=== PATIENT | female | born 1950 | race Caucasian/White ===

== ENCOUNTER → 2016-08-09 | Outpatient (CLI) | payer MEDICARE, OTHER | LOC: RAD 11:12 | PROVIDERS: ATTEND Family Medicine | DX: M54.12 Radiculopathy, cervical region (principal) | CPT/HCPCS: 72141 ==

== ENCOUNTER 2016-11-02 06:25 | Inpatient (IN) | payer MEDICARE, OTHER ==
[2016-11-02] MEDS ORDERED: NALOXONE HCL INJ/PF 0.4 MG/1 ML SDV ONE (08:15)
[2016-11-02] MEDS ORDERED: ONDANSETRON HCL INJ/PF 4 MG/2 ML SDV ONE (08:15)
[2016-11-02] MEDS ORDERED: DIPHENHYDRAMINE HCL 50 MG/ML VIAL ONE (08:15)
[2016-11-02] MEDS ORDERED: FLUMAZENIL INJ 0.5 MG/5 ML VIAL IV ONE (08:16)
[2016-11-02] MEDS ORDERED: EPINEPHRINE INJ 1 MG/10 ML DISP.SYRIN ONE (08:16)
[2016-11-02] MEDS ORDERED: GLUCAGON,HUMAN RECOMB 1 MG INJ ONE (08:17)
[2016-11-02 09:48] LABS: HEMATOCRIT 40.8 % (36.0-47.0); HEMOGLOBIN 14.2 g/dL (12.0-15.5); HGB HCT DIFFERENCE 1.8; MEAN CORPUSCULAR HEMOGLOBIN 34.1 pg (27.0-33.4); MEAN CORPUSCULAR HGB CONC 34.9 g/dL (32.0-36.0); MEAN CORPUSCULAR VOLUME 98 fl (80-97); RED BLOOD COUNT 4.17 10^6/uL (3.72-5.28); RED CELL DISTRIBUTION WIDTH 14.3 % (11.5-14.0); WHITE BLOOD COUNT 7.9 10^3/uL (4.0-10.5)
[2016-11-02] MEDS: MIDAZOLAM 2 MG/2 ML INJ ONE ×2 (09:58→10:02)
[2016-11-02] MEDS: FENTANYL CITRATE INJ/PF 100 MCG/2 ML AMPUL ONE ×2 (10:00→10:04)
--- NOTE | 2016-11-02 10:12 | Operative Report ---
Operative Report DATE OF SURGERY: 11/02/16 Operative Report: The risks benefits and alternatives of the procedure explained to the patient in detail and informed consent is obtained that GIF Olympus video scope was inserted into the patient's mouth and hypopharynx the esophagus is identified intubated and insufflated the scope was then advanced through the esophagus stomach and duodenum retroflexion maneuver is done the esophagus stomach and first and second portions of the duodenum examined PREOPERATIVE DIAGNOSIS: Epigastric pain POSTOPERATIVE DIAGNOSIS: Gastritis, duodenitis OPERATION: EGD with biopsy SURGEON: TETE VILLALPANDO ANESTHESIA: Moderate Sedation - 4 mg of Versed, 75 g of fentanyl. Conscious sedation monitoring time 30 minutes. TISSUE REMOVED OR ALTERED: Gastric specimens obtained rule out Helicobacter pylori COMPLICATIONS: None. ESTIMATED BLOOD LOSS: none. INTRAOPERATIVE FINDINGS: Gastritis, duodenitis. PROCEDURE: Patient tolerated procedure well. No immediate postprocedure complications are noted. Patient had labs drawn including an elevated lipase. We'll offer the patient possible admission if she is willing Otherwise patient is discharged in good condition Discharge date 11/02/2016. Discharge diet clear liquids Discharge activity regular 2-3 week follow-up to discuss findings. She was instructed to call the office or proceed to the emergency room should there be any further problems or questions. We'll await on biopsies.
[2016-11-02 10:53] LABS: ANION GAP 14 (5-19); BLOOD UREA NITROGEN 26 mg/dL (7-20); CALCIUM 10.2 mg/dL (8.4-10.2); CARBON DIOXIDE 21 mmol/L (22-30); CHLORIDE 102 mmol/L (98-107); CREATININE RESULT 0.87 mg/dL (0.52-1.25); GLUCOSE 231 mg/dL (75-110); POTASSIUM 4.8 mmol/L (3.6-5.0); SODIUM 137.4 mmol/L (137-145)
[2016-11-02] MEDS ORDERED: ACETAMINOPHEN 325 MG TABLET PO PRN (12:16)
[2016-11-02] MEDS ORDERED: DEXTROSE 40% GEL 15 GM TUBE PO PRN ×4 (12:16→12:24)
[2016-11-02] MEDS ORDERED: ONDANSETRON HCL INJ/PF 4 MG/2 ML SDV IV PRN (12:16)
[2016-11-02] MEDS ORDERED: DEXTROSE 50%-WATER 25 GM/50 ML DISP.SYRIN IV PRN ×4 (12:16→12:24)
[2016-11-02] MEDS ORDERED: NORMAL SALINE 1000 ML 1,000 ML IV PRN (12:16)
[2016-11-02] MEDS ORDERED: GLUCAGON,HUMAN RECOMB 1 MG INJ SUBCUT PRN (12:16)
[2016-11-02] MEDS ORDERED: HYDROMORPHONE HCL INJ/PF 2 MG/ML AMPULE IV PRN (12:20)
[2016-11-02] MEDS ORDERED: GLUCAGON,HUMAN RECOMB 1 MG INJ IM PRN (12:24)
[2016-11-02] MEDS ORDERED: INSULIN REG, HUMAN 100 UNIT/ML 3 ML VIAL (PYX) SUBCUT PRN (12:24)
--- NOTE | 2016-11-02 13:33 | PDOC H&P ---
History of Present Illness Admission Date/PCP: ARIK SHI MD Patient complains of: Abdominal pain History of Present Illness: BLAKE ADEN is a 66 year old female, history of pancreatitis in the past, hypertriglyceridemia prior gallstones status post cholecystectomy presents to the hospital with abdominal pain for the past 1 week pain is colicky in nature and radiating to the back. There is associated nausea but no vomiting. No dysuria urgency or frequency, no diarrhea or constipation, no vaginal discharge or bleeding. No melena hematochezia or hematemesis. Sometimes symptoms get worse with oral intake. The patient was referred to Dr. Beckford who performed upper endoscopy today. EGD revealed gastritis, but no significant ulcer was noted. Repeat blood tests were performed, showing elevated lipase, that was normal recently prior to endoscopy. The patient was referred to the hospitalist for admission. Patient denies any alcohol abuse at all. Past Medical History Cardiac Medical History: Reports: Congestive Heart Failure, Hyperlipidema, Hypertension Denies: Coronary Artery Disease, Myocardial Infarction Pulmonary Medical History: Reports: Pneumonia Denies: Asthma, Bronchitis, Chronic Obstructive Pulmonary Disease (COPD), Tuberculosis Neurological Medical History: Denies: Seizures Endocrine Medical History: Reports: Diabetes Mellitus Type 2, Other - Pancreatitis Malignancy Medical History: Reports: Breast Cancer GI Medical History: Reports: Diverticulitis - diverticulosis Denies: Hepatitis, Hiatal Hernia Musculoskeltal Medical History: Reports: Arthritis, Gout Skin Medical History: Reports: Other - Lymphedema on the left due to prior mastectomy. Hematology: Denies: Anemia, Sickle Cell Disease Past Surgical History Past Surgical History: Reports: Mastectomy - LEFT, 13 nodes removed Denies: Amputation, Hysterectomy, Pacemaker Social History Information Source: Patient Smoking Status: Never Smoker Frequency of Alcohol Use: None Hx Recreational Drug Use: No Drugs: None Hx Prescription Drug Abuse: No Family History Family History: Arthritis, CAD, CVA, DM, Hyperlipidemia, Hypertension, Malignancy, Other Parental Family History Reviewed: Yes Children Family History Reviewed: Yes Sibling(s) Family History Reviewed.: Yes Medication/Allergy Home Medications: Allopurinol [Zyloprim 300 mg Tablet] 300 mg PO DAILY 07/17/15 Aspirin [Aspirin EC] 81 mg PO DAILY 07/17/15 Glipizide [Glipizide Xl] 10 mg PO QAM 07/17/15 Insulin Detemir [Levemir Flextouch] 20 unit SQ QHS 07/17/15 Lisinopril 40 mg PO DAILY 07/17/15 Metoprolol Succinate [Toprol Xl] 100 mg PO BID 07/17/15 Lorazepam 1 mg PO BID 05/08/16 Gabapentin [Neurontin 300 mg Capsule] 300 mg PO TID 11/02/16 Allergies/Adverse Reactions: latex [Latex] Allergy (Intermediate, Verified 11/02/16 09:12) rash morphine [Morphine] Adverse Reaction (Intermediate, Verified 11/02/16 09:12) agitated Review of Systems Constitutional: ABSENT: chills, fever(s), headache(s), weight gain, weight loss Eyes: ABSENT: visual disturbances Ears: ABSENT: hearing changes Cardiovascular: ABSENT: chest pain, dyspnea on exertion, edema, orthropnea, palpitations Respiratory: ABSENT: cough, hemoptysis Gastrointestinal: PRESENT: abdominal pain, nausea. ABSENT: constipation, diarrhea, dysphagia, hematemesis, hematochezia, melena, vomiting Genitourinary: ABSENT: difficulty urinating, dysuria, hematuria Musculoskeletal: ABSENT: joint swelling Integumentary: ABSENT: rash, wounds Neurological: ABSENT: abnormal gait, abnormal speech, confusion, dizziness, focal weakness, syncope Psychiatric: ABSENT: anxiety, depression, homidical ideation, suicidal ideation Endocrine: ABSENT: cold intolerance, heat intolerance, polydipsia, polyuria Hematologic/Lymphatic: ABSENT: easy bleeding, easy bruising Physical Exam Vital Signs: Temp Pulse Resp BP Pulse Ox 98.3 F 66 14 109/68 98 11/02/16 11:10 11/02/16 11:10 11/02/16 11:10 11/02/16 11:10 11/02/16 11:10 Intake & Output 11/01/16 11/02/16 11/03/16 06:59 06:59 06:59 Intake Total 550 Balance 550 Weight 76.2 kg General appearance: PRESENT: no acute distress, cooperative, obese Head exam: PRESENT: atraumatic, normocephalic Eye exam: PRESENT: conjunctiva pink, EOMI, PERRLA. ABSENT: scleral icterus Ear exam: PRESENT: normal external ear exam Mouth exam: PRESENT: moist, neck supple, tongue midline Throat exam: ABSENT: post pharyngeal erythema, tonsillar erythema Neck exam: ABSENT: carotid bruit, JVD, lymphadenopathy, thyromegaly Respiratory exam: PRESENT: clear to auscultation noah. ABSENT: rales, rhonchi, wheezes Cardiovascular exam: PRESENT: RRR. ABSENT: diastolic murmur, rubs, systolic murmur Pulses: PRESENT: normal dorsalis pedis pul Vascular exam: PRESENT: normal capillary refill GI/Abdominal exam: PRESENT: guarding - Minimal voluntary, hyperactive bowel sounds, soft, tenderness - Epigastric and left upper quadrant area. ABSENT: distended, mass - Exam limited due to discomfort, organolmegaly - Exam limited due to discomfort, rebound Rectal exam: PRESENT: deferred Extremities exam: PRESENT: full ROM. ABSENT: calf tenderness, clubbing, pedal edema Neurological exam: PRESENT: alert, awake, oriented to person, oriented to place , oriented to time, oriented to situation, CN II-XII grossly intact. ABSENT: motor sensory deficit Psychiatric exam: PRESENT: appropriate affect, normal mood. ABSENT: homicidal ideation, suicidal ideation Skin exam: PRESENT: dry, intact, warm. ABSENT: cyanosis, rash Results Laboratory Results: 11/02/16 09:17 11/02/16 09:17 11/02/16 11/02/16 11/02/16 09:17 09:17 09:17 WBC 7.9 RBC 4.17 Hgb 14.2 Hct 40.8 MCV 98 H MCH 34.1 H MCHC 34.9 RDW 14.3 H Plt Count 201 Sodium 137.4 Potassium 4.8 Chloride 102 Carbon Dioxide 21 L Anion Gap 14 BUN 26 H Creatinine 0.87 Est GFR ( Amer) > 60 Est GFR (Non-Af Amer) > 60 Glucose 231 H Calcium 10.2 Lipase 538.9 H Assessment & Plan - Diagnosis (1) Acute pancreatitis Qualifiers: Pancreatitis type: other Acute pancreatitis complication: unspecified Qualified Code(s): K85.80 - Other acute pancreatitis without necrosis or infection; K85.8 - Other acute pancreatitis Is this a current diagnosis for this admission?: Yes (2) Gastritis Qualifiers: Gastritis type: unspecified gastritis Chronicity: chronic Gastritis bleeding: without bleeding Qualified Code(s): K29.50 - Unspecified chronic gastritis without bleeding Is this a current diagnosis for this admission?: Yes (3) Diabetes Qualifiers: Diabetes mellitus type: type 2 Diabetes mellitus complication status: without complication Diabetes mellitus half-way insulin use: with half-way use Qualified Code(s): E11.9 - Type 2 diabetes mellitus without complications Is this a current diagnosis for this admission?: Yes (4) Hypercholesterolemia Is this a current diagnosis for this admission?: Yes (5) Hypertension Qualifiers: Hypertension type: essential hypertension Qualified Code(s): I10 - Essential (primary) hypertension Is this a current diagnosis for this admission?: Yes (6) Gout Qualifiers: Gout site: unspecified site Gout etiology: unspecified cause Chronicity: unspecified Qualified Code(s): M10.9 - Gout, unspecified Is this a current diagnosis for this admission?: Yes (7) Diverticulosis Qualifiers: Diverticulosis site: diverticulosis of large intestine Diverticulosis bleeding: diverticulosis without bleeding Qualified Code(s): K57.30 - Diverticulosis of large intestine without perforation or abscess without bleeding Is this a current diagnosis for this admission?: Yes (8) Lymphedema Is this a current diagnosis for this admission?: Yes (9) COPD (chronic obstructive pulmonary disease) Qualifiers: COPD type: unspecified COPD Qualified Code(s): J44.9 - Chronic obstructive pulmonary disease, unspecified Is this a current diagnosis for this admission?: Yes (10) History of breast cancer Is this a current diagnosis for this admission?: Yes - Time Time Spent: 30 to 50 Minutes - Inpatient Certification Based on my medical assessment, after consideration of the patient's comorbidities, presenting symptoms, or acuity I expect that the services needed warrant INPATIENT care.: Yes I certify that my determination is in accordance with my understanding of Medicare's requirements for reasonable and necessary INPATIENT services [42 CFR 412.3e].: Yes Medical Necessity: Need Close Monitoring Due to Risk of Patient Decompensation, Need For IV Fluids, Need for Pain Control, Risk of Complication if Not Cared For in Hospital - Plan Summary Plan Summary: Patient will be admitted to the medical floor. I will keep her nothing by mouth except for medications. We will obtain a lipid panel. The patient however was intolerant to cholesterol medication including Lipitor and TriCor. She developed muscle aches and pain at that time probably rhabdomyolysis. She has not tried niacin or gemfibrozil however. We will repeat a lipid panel. She has been following vigorous low-fat diet. We will obtain an abdominal ultrasound to check for any stones, and have gastroenterology follow her up during this hospital stay. She will be on DVT prophylaxis with Lovenox. Dilaudid as needed will be given for pain and Zofran as needed for nausea and vomiting. We will monitor her electrolytes, WBC , amylase and lipase level daily. Further testing depends on the initial evaluation as above.
[2016-11-02] MEDS: GABAPENTIN 300 MG CAPSULE PO SCH ×2 (15:03→21:46)
[2016-11-02] MEDS: DOCUSATE SODIUM 100 MG CAPSULE PO SCH (17:48)
[2016-11-02] MEDS: METOPROLOL SUCCINATE 50 MG TAB.SR.24H PO SCH (17:48)
[2016-11-02] MEDS: LANSOPRAZOLE 30 MG TAB.RAP.DR PO SCH (17:48)
[2016-11-02] MEDS: LORAZEPAM 1 MG TABLET PO SCH (17:48)
[2016-11-03 05:04] LABS: APPEARANCE,URINE CLEAR; BILIRUBIN,URINE NEGATIVE (NEGATIVE); GLUCOSE, URINE NEGATIVE (NEGATIVE); KETONES,URINE NEGATIVE (NEGATIVE); LEUKOCYTE ESTERASE,URINE NEGATIVE (NEGATIVE); NITRITE,URINE NEGATIVE (NEGATIVE); PROTEIN,URINE NEGATIVE (NEGATIVE); URINE SPECIFIC GRAVITY 1.009; UROBILINOGEN,URINE NEGATIVE mg/dL (<2.0)
[2016-11-03] MEDS: GABAPENTIN 300 MG CAPSULE PO SCH (06:09)
[2016-11-03] MEDS: LANSOPRAZOLE 30 MG TAB.RAP.DR PO SCH (06:09)
[2016-11-03] MEDS: METOPROLOL SUCCINATE 50 MG TAB.SR.24H PO SCH (06:10)
[2016-11-03 06:45] LABS: ABSOLUTE EOSINOPHILS # (AUTO) 0.1 10^3/uL (0.0-0.6); ABSOLUTE LYMPHOCYTES (AUTO) 2.7 10^3/uL (0.5-4.7); ABSOLUTE MONOCYTES (AUTO) 0.5 10^3/uL (0.1-1.4); ABSOLUTE NEUT (AUTO) 2.6 10^3/uL (1.7-8.2); BASOPHILS % (AUTO) 0.6 % (0-2); EOSINOPHILS % (AUTO) 1.1 % (0-6); HEMATOCRIT 37.3 % (36.0-47.0); HEMOGLOBIN 12.9 g/dL (12.0-15.5); HGB HCT DIFFERENCE 1.4; LYMPHOCYTES % (AUTO) 45.4 % (13-45); MEAN CORPUSCULAR HEMOGLOBIN 34.1 pg (27.0-33.4); MEAN CORPUSCULAR HGB CONC 34.8 g/dL (32.0-36.0); MEAN CORPUSCULAR VOLUME 98 fl (80-97); MONOCYTES % (AUTO) 7.8 % (3-13); RED CELL DISTRIBUTION WIDTH 14.4 % (11.5-14.0); SEGMENTED NEUTROPHILS % (AUTO) 45.1 % (42-78); WHITE BLOOD COUNT 5.9 10^3/uL (4.0-10.5)
[2016-11-03 06:53] LABS: AMYLASE 52 U/L (30-110); ANION GAP 10 (5-19); BLOOD UREA NITROGEN 20 mg/dL (7-20); CALCIUM 9.1 mg/dL (8.4-10.2); CARBON DIOXIDE 23 mmol/L (22-30); CHLORIDE 107 mmol/L (98-107); CHOLESTEROL 199.79 mg/dL (0-200); CREATININE RESULT 0.81 mg/dL (0.52-1.25); Direct HDL 28 mg/dL (>40); GLUCOSE 155 mg/dL (75-110); LIPASE 383.4 U/L (23-300); MAGNESIUM 1.7 mg/dL (1.6-2.3); PHOSPHORUS 4.1 mg/dL (2.5-4.5); POTASSIUM 4.4 mmol/L (3.6-5.0); SODIUM 139.5 mmol/L (137-145); TRIGLYCERIDES 494 mg/dL (<150)
[2016-11-03 07:04] LABS: DIRECT LDL 81 mg/dL (<100)
[2016-11-03] MEDS ORDERED: ENOXAPARIN SODIUM INJ 40 MG/0.4 ML DISP.SYRIN SUBCUT SCH (08:00)
--- NOTE | 2016-11-03 08:46 | PDOC CONSULTATION ---
Consultation Consult Date: 11/03/16 Attending physician:: TETE VILLALPANDO Consult reason:: Pancreatitis History of Present Illness Admission Date/PCP: ARIK SHI MD History of Present Illness: patient had EGD yesterday notable for some gastritis biopsies are negative labs done and noted to have an elevated Lipase no evidence of DKA patient has elevated triglycerides but not> 2000 does not drink alcohol she was admitted by the Hospitalist service no elevated WBC patient's biopsies are still pending had not been able to eat for several days mild weight loss some dehydration, patient does not have melena or bloody stools no recent infections noted Past Medical History Cardiac Medical History: Reports: Congestive Heart Failure, Hyperlipidema, Hypertension Denies: Coronary Artery Disease, Myocardial Infarction Pulmonary Medical History: Reports: Pneumonia Denies: Asthma, Bronchitis, Chronic Obstructive Pulmonary Disease (COPD), Tuberculosis Neurological Medical History: Denies: Seizures Endocrine Medical History: Reports: Diabetes Mellitus Type 2, Other - Pancreatitis Malignancy Medical History: Reports: Breast Cancer GI Medical History: Reports: Diverticulitis - diverticulosis Denies: Hepatitis, Hiatal Hernia Musculoskeltal Medical History: Reports: Arthritis, Gout Skin Medical History: Reports: Other - Lymphedema on the left due to prior mastectomy. Hematology: Denies: Anemia, Sickle Cell Disease Past Surgical History Past Surgical History: Reports: Mastectomy - LEFT, 13 nodes removed Denies: Amputation, Hysterectomy, Pacemaker Social History Smoking Status: Current Every Day Smoker Cigarettes Packs Per Day: 0.5 Frequency of Alcohol Use: None Hx Recreational Drug Use: No Drugs: None Hx Prescription Drug Abuse: No Family History Family History: Arthritis, CAD, CVA, DM, Hyperlipidemia, Hypertension, Malignancy, Other Parental Family History Reviewed: Yes Children Family History Reviewed: Unknown Sibling(s) Family History Reviewed.: Unknown Medication/Allergy Home Medications: Allopurinol [Zyloprim 300 mg Tablet] 300 mg PO DAILY 07/17/15 Aspirin [Aspirin EC] 81 mg PO DAILY 07/17/15 Glipizide [Glipizide Xl] 10 mg PO QAM 07/17/15 Insulin Detemir [Levemir Flextouch] 20 unit SQ QHS 07/17/15 Lisinopril 40 mg PO DAILY 07/17/15 Metoprolol Succinate [Toprol Xl] 100 mg PO BID 07/17/15 Lorazepam 1 mg PO BID 05/08/16 Gabapentin [Neurontin 300 mg Capsule] 300 mg PO TID 11/02/16 Allergies/Adverse Reactions: latex [Latex] Allergy (Intermediate, Verified 11/02/16 09:12) rash morphine [Morphine] Adverse Reaction (Intermediate, Verified 11/02/16 09:12) agitated Review of Systems Constitutional: ABSENT: fever(s), headache(s), night sweats, weakness Eyes: ABSENT: visual disturbances Ears: ABSENT: hearing changes Nose, Mouth, and Throat: ABSENT: mouth pain, sore throat Cardiovascular: ABSENT: edema, orthropnea, palpitations Respiratory: ABSENT: dyspnea, hemoptysis Gastrointestinal: ABSENT: diarrhea, dysphagia, nausea Genitourinary: ABSENT: dysuria, hematuria Musculoskeletal: ABSENT: deformity Integumentary: ABSENT: lesions Neurological: ABSENT: syncope, tingling, tremor(s), vertigo Endocrine: ABSENT: polydipsia, polyphagia, polyuria Hematologic/Lymphatic: ABSENT: easy bruising Physical Exam Vital Signs: Temp Pulse Resp BP Pulse Ox 98.2 F 59 L 18 105/64 99 11/02/16 23:37 11/02/16 23:37 11/02/16 23:37 11/02/16 23:37 11/02/16 23:37 Intake & Output 11/02/16 11/03/16 11/04/16 06:59 06:59 06:59 Intake Total 2261 Output Total 500 Balance 1761 Weight 76.2 kg General appearance: PRESENT: well-developed, well-nourished Head exam: PRESENT: atraumatic, normocephalic Eye exam: PRESENT: EOMI, PERRLA. ABSENT: scleral icterus Mouth exam: PRESENT: moist Throat exam: ABSENT: tonsillar exudate, tonsillogmegaly Neck exam: ABSENT: meningismus, tenderness, thyromegaly Respiratory exam: PRESENT: clear to auscultation noah, symmetrical, unlabored. ABSENT: wheezes Cardiovascular exam: PRESENT: RRR, +S1, +S2 GI/Abdominal exam: PRESENT: normal bowel sounds, soft. ABSENT: Correa's sign, rebound, rigid, tenderness Extremities exam: ABSENT: joint swelling Musculoskeletal exam: PRESENT: full ROM Neurological exam: PRESENT: alert, awake, oriented to place, oriented to time, oriented to situation, CN II-XII grossly intact Skin exam: PRESENT: normal color. ABSENT: mottled, pallor, petechiae, urticaria , vesicles Results Laboratory Results: 11/03/16 05:59 11/03/16 05:59 11/02/16 11/02/16 11/02/16 09:17 09:17 09:17 WBC 7.9 RBC 4.17 Hgb 14.2 Hct 40.8 MCV 98 H MCH 34.1 H MCHC 34.9 RDW 14.3 H Plt Count 201 Seg Neutrophils % Lymphocytes % Monocytes % Eosinophils % Basophils % Absolute Neutrophils Absolute Lymphocytes Absolute Monocytes Absolute Eosinophils Absolute Basophils Sodium 137.4 Potassium 4.8 Chloride 102 Carbon Dioxide 21 L Anion Gap 14 BUN 26 H Creatinine 0.87 Est GFR ( Amer) > 60 Est GFR (Non-Af Amer) > 60 Glucose 231 H Calcium 10.2 Phosphorus Magnesium Triglycerides Cholesterol LDL Cholesterol Direct VLDL Cholesterol HDL Cholesterol Amylase Lipase 538.9 H Urine Color Urine Appearance Urine pH Ur Specific [place] Urine Protein Urine Glucose (UA) Urine Ketones Urine Blood Urine Nitrite Ur Leukocyte Esterase Urine WBC (Auto) 11/03/16 11/03/16 11/03/16 04:30 05:59 05:59 WBC 5.9 RBC 3.80 Hgb 12.9 Hct 37.3 MCV 98 H MCH 34.1 H MCHC 34.8 RDW 14.4 H Plt Count 182 Seg Neutrophils % 45.1 Lymphocytes % 45.4 H Monocytes % 7.8 Eosinophils % 1.1 Basophils % 0.6 Absolute Neutrophils 2.6 Absolute Lymphocytes 2.7 Absolute Monocytes 0.5 Absolute Eosinophils 0.1 Absolute Basophils 0.0 Sodium 139.5 Potassium 4.4 Chloride 107 Carbon Dioxide 23 Anion Gap 10 BUN 20 Creatinine 0.81 Est GFR ( Amer) > 60 Est GFR (Non-Af Amer) > 60 Glucose 155 H Calcium 9.1 Phosphorus 4.1 Magnesium 1.7 Triglycerides 494 H Cholesterol 199.79 LDL Cholesterol Direct 81 VLDL Cholesterol UNABLE TO CALCULATE HDL Cholesterol 28 L Amylase 52 Lipase 383.4 H Urine Color YELLOW Urine Appearance CLEAR Urine pH 5.0 Ur Specific [place] 1.009 Urine Protein NEGATIVE Urine Glucose (UA) NEGATIVE Urine Ketones NEGATIVE Urine Blood NEGATIVE Urine Nitrite NEGATIVE Ur Leukocyte Esterase NEGATIVE Urine WBC (Auto) 6 Assessment & Plan - Diagnosis (1) Gastritis Qualifiers: Gastritis type: unspecified gastritis Chronicity: chronic Gastritis bleeding: without bleeding Qualified Code(s): K29.50 - Unspecified chronic gastritis without bleeding Is this a current diagnosis for this admission?: YesPlan: will wait on biopsies started on PPI (2) Acute pancreatitis Qualifiers: Pancreatitis type: other Acute pancreatitis complication: unspecified Qualified Code(s): K85.80 - Other acute pancreatitis without necrosis or infection; K85.8 - Other acute pancreatitis Is this a current diagnosis for this admission?: YesPlan: IV fluids and pain control while she does have elevated triglycerides, it is not > 2000 which would be more typical for pancreatitis to start will need outpatient management may need to see Endocrinology for further management slowly advance diet - Time Time Spent: 50 to 70 Minutes
[2016-11-03] MEDS ORDERED: LISINOPRIL 10 MG TABLET PO SCH (10:00)
[2016-11-03] MEDS ORDERED: (PENDING PHARMACY ID) (Lisinopril [Lisinopril] 40 MG) PO SCH (10:00)
[2016-11-03] MEDS ORDERED: ASPIRIN 81 MG TABLET, ENT COATED PO SCH (10:00)
[2016-11-03] MEDS: DOCUSATE SODIUM 100 MG CAPSULE PO SCH (10:21)
[2016-11-03] MEDS: LORAZEPAM 1 MG TABLET PO SCH (10:23)
[2016-11-03 14:48] VITALS: BP 124/64
--- NOTE | 2016-11-03 14:58 | PDOC DISCHARGE SUMMARY ---
General - Admit/Disc Date/PCP Admission Date/Primary Care Provider: ARIK SHI MD Discharge Date: 11/03/16 - Discharge Diagnosis (1) Acute pancreatitis Is this a current diagnosis for this admission?: Yes (2) Gastritis Is this a current diagnosis for this admission?: Yes (3) Diabetes Is this a current diagnosis for this admission?: Yes (4) Hypercholesterolemia Is this a current diagnosis for this admission?: Yes (5) Hypertension Is this a current diagnosis for this admission?: Yes (6) Gout Is this a current diagnosis for this admission?: Yes (7) Diverticulosis Is this a current diagnosis for this admission?: Yes (8) Lymphedema Is this a current diagnosis for this admission?: Yes (9) COPD (chronic obstructive pulmonary disease) Is this a current diagnosis for this admission?: Yes (10) History of breast cancer Is this a current diagnosis for this admission?: Yes - Additional Information Discharge Diet: Cardiac - low-fat low-salt, Diabetic - no concentrated sweets, Other (Comments) - soft mechanical with ground meats Discharge Activity: Activity As Tolerated, Balance Activity w/Rest Home Medications: Allopurinol [Zyloprim 300 mg Tablet] 300 mg PO DAILY 07/17/15 Aspirin [Aspirin EC] 81 mg PO DAILY 07/17/15 Glipizide [Glipizide Xl] 10 mg PO QAM 07/17/15 Insulin Detemir [Levemir Flextouch] 20 unit SQ QHS 07/17/15 Lisinopril 40 mg PO DAILY 07/17/15 Metoprolol Succinate [Toprol Xl] 100 mg PO BID 07/17/15 Lorazepam 1 mg PO BID 05/08/16 Gabapentin [Neurontin 300 mg Capsule] 300 mg PO TID 11/02/16 Gemfibrozil [Lopid] 600 mg PO BID #60 tablet 11/03/16 Lansoprazole [Prevacid 30 mg Odt Tablet] 30 mg PO DAILY #30 tab 11/03/16 Additional Information: Return to the emergency room he had symptoms recur History of Present Illness Patient complains of: Abdominal pain History of Present Illness: BLAKE ADEN is a 66 year old female, history of pancreatitis in the past, hypertriglyceridemia prior gallstones status post cholecystectomy presents to the hospital with abdominal pain for the past 1 week pain is colicky in nature and radiating to the back. There is associated nausea but no vomiting. No dysuria urgency or frequency, no diarrhea or constipation, no vaginal discharge or bleeding. No melena hematochezia or hematemesis. Sometimes symptoms get worse with oral intake. The patient was referred to Dr. Beckford who performed upper endoscopy today. EGD revealed gastritis, but no significant ulcer was noted. Repeat blood tests were performed, showing elevated lipase, that was normal recently prior to endoscopy. The patient was referred to the hospitalist for admission. Patient denies any alcohol abuse at all. Hospital Course Hospital Course: The patient was admitted to telemetry. The patient was placed nothing by mouth , intravenous fluid was started, as needed Dilaudid was given for pain control. Electrolytes were monitored as well as WBC. Serum lipase levels and amylase levels were likewise monitored. Her lipase level was trending down. Her triglycerides was elevated, but her cholesterol level is normal. She has tried fenofibrate in the past but has not tried Lopid. She has tried Lipitor in the past as well and patient reports both cause muscle cramps and pain necessitating discontinuation of the medications. Her pancreatitis per now attributed to her elevated triglycerides. Patient was educated about diet, over -the-counter alternatives including fish oil, and trial of either medication including niacin and gemfibrozil. Patient understood and would want to try the lopid. Patient subsequently was tried on full liquid diet and tolerated it well. Her symptoms resolved, abdominal pain resolved. Her EGD showed gastritis prior to admission. No Helicobacter pylori was noted. The rest of the hospital stay is unremarkable. Physical Exam Vital Signs: Temp Pulse Resp BP Pulse Ox 98.6 F 67 16 124/64 99 11/03/16 14:45 11/03/16 14:45 11/03/16 14:45 11/03/16 14:45 11/03/16 14:45 Intake & Output 11/02/16 11/03/16 11/04/16 06:59 06:59 06:59 Intake Total 2261 Output Total 500 Balance 1761 Weight 76.2 kg General appearance: PRESENT: no acute distress, cooperative Head exam: PRESENT: normocephalic Eye exam: PRESENT: EOMI Mouth exam: PRESENT: moist, neck supple Neck exam: ABSENT: JVD Respiratory exam: PRESENT: clear to auscultation noah. ABSENT: rhonchi, wheezes Cardiovascular exam: PRESENT: RRR. ABSENT: gallop GI/Abdominal exam: PRESENT: soft. ABSENT: distended, tenderness Neurological exam: PRESENT: alert, awake, oriented to situation Skin exam: PRESENT: dry, warm. ABSENT: cyanosis Results Laboratory Results: 11/03/16 05:59 11/03/16 05:59 11/03/16 11/03/16 11/03/16 04:30 05:59 05:59 WBC 5.9 RBC 3.80 Hgb 12.9 Hct 37.3 MCV 98 H MCH 34.1 H MCHC 34.8 RDW 14.4 H Plt Count 182 Seg Neutrophils % 45.1 Lymphocytes % 45.4 H Monocytes % 7.8 Eosinophils % 1.1 Basophils % 0.6 Absolute Neutrophils 2.6 Absolute Lymphocytes 2.7 Absolute Monocytes 0.5 Absolute Eosinophils 0.1 Absolute Basophils 0.0 Sodium 139.5 Potassium 4.4 Chloride 107 Carbon Dioxide 23 Anion Gap 10 BUN 20 Creatinine 0.81 Est GFR ( Amer) > 60 Est GFR (Non-Af Amer) > 60 Glucose 155 H Calcium 9.1 Phosphorus 4.1 Magnesium 1.7 Triglycerides 494 H Cholesterol 199.79 LDL Cholesterol Direct 81 VLDL Cholesterol UNABLE TO CALCULATE HDL Cholesterol 28 L Amylase 52 Lipase 383.4 H Urine Color YELLOW Urine Appearance CLEAR Urine pH 5.0 Ur Specific [place] 1.009 Urine Protein NEGATIVE Urine Glucose (UA) NEGATIVE Urine Ketones NEGATIVE Urine Blood NEGATIVE Urine Nitrite NEGATIVE Ur Leukocyte Esterase NEGATIVE Urine WBC (Auto) 6 Qualifiers [place] BEING DISCHARGED WITH ANY OF THE FOLLOWING DIAGNOSIS?: No Plan Discharge Plan: Follow-up with primary care physician in one week. Follow-up with gastroenterology in 1-2 weeks( Dr. Beckford) Time Spent: Less than 30 Minutes
== END 2016-11-03 15:28 | disposition home or self-care (01) | DRG 440 ==
LOC: END 08:35 → EDSTATUS 09:30 → 5 12:16 → END 13:36 → 5 13:36 → END 11-03 15:28 → 5 11-03 15:28
PROC: 0DB68ZX Excision of Stomach, Via Natural or Artificial Opening Endoscopic, Diagnostic (ICD-10-PCS; principal; 2016-11-02 09:30)
DX: K85.90 Acute pancreatitis without necrosis or infection, unspecified (principal); K29.50 Unspecified chronic gastritis without bleeding; K29.80 Duodenitis without bleeding; E78.00 Pure hypercholesterolemia, unspecified; M10.9 Gout, unspecified; E11.9 Type 2 diabetes mellitus without complications; K57.30 Diverticulosis of large intestine without perforation or abscess without bleeding; J44.9 Chronic obstructive pulmonary disease, unspecified; I11.0 Hypertensive heart disease with heart failure; I50.9 Heart failure, unspecified; M19.90 Unspecified osteoarthritis, unspecified site; I89.0 Lymphedema, not elsewhere classified; F17.210 Nicotine dependence, cigarettes, uncomplicated; Z88.6 Allergy status to analgesic agent; Z79.4 Long term (current) use of insulin; Z79.51 Long term (current) use of inhaled steroids; Z85.3 Personal history of malignant neoplasm of breast; Z79.82 Long term (current) use of aspirin; Z91.040 Latex allergy status; Z90.49 Acquired absence of other specified parts of digestive tract; Z90.12 Acquired absence of left breast and nipple; Z82.49 Family history of ischemic heart disease and other diseases of the circulatory system; Z82.3 Family history of stroke
CPT/HCPCS: 36415; 43239; 80048; 80061; 81001; 82150; 82962; 83690; 83735; 84100; 85025; 85027; 88305; 88342; J0171; J1170; J1200; J1610; J1650; J2250; J2310; J2405; J3010; J3490; J7030

== ENCOUNTER 2016-11-10 09:54 | Emergency (ER) | payer MEDICARE, OTHER ==
--- NOTE | 2016-11-10 10:28 | ER Document Report ---
ED Medical Screen (RME) - General Mode of Arrival: Wheelchair Information source: Patient TRAVEL OUTSIDE OF THE [place] IN LAST 30 DAYS: No <THERESA SUMMERS - Last Filed: 11/10/16 12:35> <SHERRELL CROWLEY - Last Filed: 11/10/16 21:21> - General Chief Complaint: Dizziness Stated Complaint: WEAKNESS Time Seen by Provider: 11/10/16 10:17 Notes: Patient presents with complaints of near syncope. Patient reports she was having blood pressure issues last weekend and was given clonidine and has not had any recent blood pressure issues. Patient was at the hospital last week for GI issues. Patient reports that this morning she was eating a fried chicken biscuit when she became weak, lightheaded, and dizzy, lasting about 20 minutes after which she had a very large bowel movement. Patient states that she feels better now but still a little lightheaded. Patient denies chest pain and difficulty breathing. patient took a gabapentin this morning which his not new and takes a daily baby Asa (THERESA SUMMERS) - Related Data Allergies/Adverse Reactions: latex [Latex] Allergy (Intermediate, Verified 11/10/16 10:10) rash morphine [Morphine] Adverse Reaction (Intermediate, Verified 11/10/16 10:10) agitated Past Medical History - General Information source: Patient - Social History Cigarette use (# per day): Yes Chew tobacco use (# tins/day): No Frequency of alcohol use: None Drug Abuse: None - Past Medical History Cardiac Medical History: Reports: Hx Congestive Heart Failure, Hx Hypercholesterolemia, Hx Hypertension Denies: Hx Coronary Artery Disease, Hx Heart Attack Pulmonary Medical History: Reports: Hx Pneumonia Denies: Hx Asthma, Hx Bronchitis, Hx COPD, Hx Tuberculosis Neurological Medical History: Denies: Hx Cerebrovascular Accident, Hx Seizures Endocrine Medical History: Reports: Hx Diabetes Mellitus Type 2 Renal/ Medical History: Denies: Hx Peritoneal Dialysis Malignancy Medical History: Reports: Hx Breast Cancer GI Medical History: Reports: Hx Diverticulitis - diverticulosis. Denies: Hx Hepatitis, Hx Hiatal Hernia, Hx Ulcer Musculoskeltal Medical History: Reports Hx Arthritis, Reports Hx Gout Skin Medical History: Reports Hx Cellulitis Infectious Medical History: Denies: Hx Hepatitis Past Surgical History: Reports: Hx Mastectomy - LEFT, 13 nodes removed. Denies : Hx Hysterectomy, Hx Open Heart Surgery, Hx Pacemaker - Immunizations Immunizations up to date: No Hx Diphtheria, Pertussis, Tetanus Vaccination: Yes <MELINATHERESA - Last Filed: 11/10/16 12:35> Review of Systems - Review of Systems Cardiovascular: See HPI, Syncope <THERESA SUMMERS - Last Filed: 11/10/16 12:35> Physical Exam - Neurological Speech: Normal - no slurring Cranial nerves: Normal - no facial droop <THERESA SUMMERS - Last Filed: 11/10/16 12:35> Course - Laboratory Result Diagrams: 11/10/16 10:55 11/10/16 10:55 <THERESA SUMMERS - Last Filed: 11/10/16 12:35> - Laboratory Result Diagrams: 11/10/16 10:55 11/10/16 10:55 <SHERRELL CROWLEY - Last Filed: 11/10/16 21:21> - Vital Signs Vital signs: Temp Pulse Resp BP Pulse Ox 97.7 F 78 16 139/86 H 97 11/10/16 12:45 11/10/16 12:45 11/10/16 12:45 11/10/16 12:45 11/10/16 12:45 - Laboratory Laboratory results interpreted by me: 11/10/16 11/10/16 10:55 10:55 MCV 100 H MCH 33.7 H RDW 14.4 H Seg Neutrophils % 79.7 H Sodium 135.4 L Glucose 217 H Doctor's Discharge <THERESA SUMMERS - Last Filed: 11/10/16 12:35> <SHERRELL CROWLEY - Last Filed: 11/10/16 21:21> - Discharge Clinical Impression: Dizziness, Vasovagal near syncope, Diarrhea, Situational hypertension Condition: Stable Disposition: HOME, SELF-CARE Additional Instructions: Please follow up with her primary care physician closely as an outpatient. Please return should you have more dizziness, should she develop any chest pain , develop any difficulty walking or any new or concerning symptoms. Referrals: ARIK SHI MD [Primary Care Provider] - Follow up as needed Scribe Documentation - Scribe Written by Scribe:: betty Braun, 11/10/16, [id number] acting as scribe for :: Tl <THERESA SUMMERS - Last Filed: 11/10/16 12:35>
[2016-11-10 11:23] LABS: ABSOLUTE EOSINOPHILS # (AUTO) 0.1 10^3/uL (0.0-0.6); ABSOLUTE LYMPHOCYTES (AUTO) 1.4 10^3/uL (0.5-4.7); ABSOLUTE MONOCYTES (AUTO) 0.4 10^3/uL (0.1-1.4); ABSOLUTE NEUT (AUTO) 7.3 10^3/uL (1.7-8.2); BASOPHILS % (AUTO) 0.2 % (0-2); EOSINOPHILS % (AUTO) 0.8 % (0-6); HEMATOCRIT 44.5 % (36.0-47.0); HEMOGLOBIN 15.1 g/dL (12.0-15.5); HGB HCT DIFFERENCE 0.8; LYMPHOCYTES % (AUTO) 14.9 % (13-45); MEAN CORPUSCULAR HEMOGLOBIN 33.7 pg (27.0-33.4); MEAN CORPUSCULAR HGB CONC 33.8 g/dL (32.0-36.0); MEAN CORPUSCULAR VOLUME 100 fl (80-97); MONOCYTES % (AUTO) 4.4 % (3-13); RED BLOOD COUNT 4.48 10^6/uL (3.72-5.28); RED CELL DISTRIBUTION WIDTH 14.4 % (11.5-14.0); SEGMENTED NEUTROPHILS % (AUTO) 79.7 % (42-78); WHITE BLOOD COUNT 9.2 10^3/uL (4.0-10.5)
[2016-11-10 11:31] LABS: ALANINE AMINOTRANSFERASE 32 U/L (9-52); ALBUMIN 4.1 g/dL (3.5-5.0); ALKALINE PHOSPHATASE 99 U/L (38-126); ANION GAP 14 (5-19); ASPARTATE AMINO TRANSFERASE 18 U/L (14-36); BILIRUBIN,DIRECT 0.2 mg/dL (0.0-0.4); BILIRUBIN,TOTAL 0.3 mg/dL (0.2-1.3); BLOOD UREA NITROGEN 18 mg/dL (7-20); CALCIUM 9.6 mg/dL (8.4-10.2); CARBON DIOXIDE 22 mmol/L (22-30); CHLORIDE 99 mmol/L (98-107); CREATINE KINASE 43 U/L (30-135); CREATININE RESULT 0.87 mg/dL (0.52-1.25); GLUCOSE 217 mg/dL (75-110); POTASSIUM 4.7 mmol/L (3.6-5.0); SODIUM 135.4 mmol/L (137-145); TOTAL PROTEIN 6.3 g/dL (6.3-8.2)
[2016-11-10 11:43] LABS: CREATINE KINASE MB 1.27 ng/mL (<4.55)
[2016-11-10 11:44] LABS: TROPONIN I < 0.012 ng/mL
--- NOTE | 2016-11-10 12:36 | ER Document Report ---
ED Dizziness/Weakness - General Mode of Arrival: Wheelchair Information source: Patient TRAVEL OUTSIDE OF THE [place] IN LAST 30 DAYS: No - HPI Patient complains to provider of: Near-syncope Associated symptoms: Other - See above <THERESA SUMMERS - Last Filed: 11/10/16 13:44> <SHERRELL CROWLEY - Last Filed: 11/10/16 21:25> - General Chief Complaint: Near Syncope Stated Complaint: near syncope Time Seen by Provider: 11/10/16 10:17 Notes: Patient is a 66 year old female who presents with complaints of near syncope. Patient reports she was having high blood pressure issues last weekend and was given clonidine and has not had any recent blood pressure issues. Patient was at the hospital last week for GI problems. Patient reports that this morning she was eating a fried chicken biscuit when she became weak, lightheaded, and dizzy which lasting about 20 minutes after which she had a very large bowel movement. Patient states that she feels better now but still a little lightheaded. Patient denies chest pain and difficulty breathing. Patient took a gabapentin this morning which is not new medication for her and she takes a daily baby Asa. (THERESA SUMMERS) - Related Data Allergies/Adverse Reactions: latex [Latex] Allergy (Intermediate, Verified 11/10/16 10:10) rash morphine [Morphine] Adverse Reaction (Intermediate, Verified 11/10/16 10:10) agitated Past Medical History - General Information source: Patient - Social History Smoking Status: Current Every Day Smoker Cigarette use (# per day): Yes Chew tobacco use (# tins/day): No Frequency of alcohol use: None Drug Abuse: None Family History: Reviewed & Not Pertinent, Arthritis, CAD, CVA, DM, Hyperlipidemia, Hypertension, Malignancy, Other Patient has suicidal ideation: No Patient has homicidal ideation: No - Past Medical History Cardiac Medical History: Reports: Hx Congestive Heart Failure, Hx Hypercholesterolemia, Hx Hypertension Pulmonary Medical History: Reports: Hx Pneumonia Endocrine Medical History: Reports: Hx Diabetes Mellitus Type 2 Malignancy Medical History: Reports: Hx Breast Cancer GI Medical History: Reports: Hx Diverticulitis - diverticulosis Musculoskeltal Medical History: Reports Hx Arthritis, Reports Hx Gout Skin Medical History: Reports Hx Cellulitis Infectious Medical History: Denies: Hx Hepatitis Past Surgical History: Reports: Hx Mastectomy - LEFT, 13 nodes removed - Immunizations Immunizations up to date: No Hx Diphtheria, Pertussis, Tetanus Vaccination: Yes <THERESA SUMMERS - Last Filed: 11/10/16 13:44> Review of Systems - Review of Systems Constitutional: See HPI, Weakness EENT: No symptoms reported Cardiovascular: See HPI, Dizziness, Lightheaded. denies: Chest pain Respiratory: No symptoms reported. denies: Other - difficulty breathing Gastrointestinal: No symptoms reported Genitourinary: No symptoms reported Female Genitourinary: No symptoms reported Musculoskeletal: No symptoms reported Skin: No symptoms reported Hematologic/Lymphatic: No symptoms reported Neurological/Psychological: No symptoms reported <THERESA SUMMERS - Last Filed: 11/10/16 13:44> Physical Exam - Vital signs Interpretation: Normal - General General appearance: Appears well, Alert In distress: None - HEENT Head: Normocephalic, Atraumatic - Respiratory Respiratory status: No respiratory distress - Cardiovascular Rhythm: Regular - Neurological Neuro grossly intact: Yes Cognition: Normal Speech: Normal - no slurred speech Cranial nerves: Normal - no facial droop <THERESA SUMMERS - Last Filed: 11/10/16 13:44> - HEENT Pupils: PERRL Mucous membranes: Moist - Respiratory Respiratory status: No: Tachypnea - Cardiovascular Pulses: Normal: Dorsalis pedis Normal capillary refill: Yes - Abdominal Inspection: Normal Distension: No: No distension - Neurological Orientation: AAOx4 Pilgrim Coma Scale Eye Opening: Spontaneous Pilgrim Coma Scale Verbal: Oriented Pilgrim Coma Scale Motor: Obeys Commands Pilgrim Coma Scale Total: 15 Motor strength normal: LUE, RUE, LLE, RLE Additional motor exam normals: Equal 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 - Skin Skin Temperature: Warm Skin Moisture: Dry <SHERRELL CROWLEY - Last Filed: 11/10/16 21:25> - Vital signs Vitals: Temp Pulse Resp BP Pulse Ox 98.4 F 81 18 146/89 H 98 11/10/16 09:58 11/10/16 09:58 11/10/16 09:58 11/10/16 09:58 11/10/16 09:58 Course - Laboratory Result Diagrams: 11/10/16 10:55 11/10/16 10:55 <THERESA SUMMERS - Last Filed: 11/10/16 13:44> - Laboratory Result Diagrams: 11/10/16 10:55 11/10/16 10:55 <SHERRELL CROWLEY - Last Filed: 11/10/16 21:25> - Re-evaluation Re-evalutation: 11/10/16 12:37 CBC unremarkable, CMP has hyperglycemia otherwise unremarkable, cardiac enzymes negative, head CT shows no acute process, EKG is nonischemic although the poor R -wave progression shows possible anterior scar. 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 Discharged home. No evidence of stroke or heart attack at this time. (SHERRELL CROWLEY) - Vital Signs Vital signs: Temp Pulse Resp BP Pulse Ox 97.7 F 78 16 139/86 H 97 11/10/16 12:45 11/10/16 12:45 11/10/16 12:45 11/10/16 12:45 11/10/16 12:45 - Laboratory Laboratory results interpreted by me: 11/10/16 11/10/16 10:55 10:55 MCV 100 H MCH 33.7 H RDW 14.4 H Seg Neutrophils % 79.7 H Sodium 135.4 L Glucose 217 H - EKG Interpretation by Me Additional EKG results interpreted by me: 11/10/16 12:37 EKG shows sinus rhythm are is 77, left axis deviation, normal intervals, no ST segment elevations or depressions, no T-wave inversions although there is nonspecific T-wave flattening noted in lead 3, poor R-wave progression indicates possible anterior scar per my interpretation. (SHERRELL CROWLEY) Discharge <THERESA SUMMERS - Last Filed: 11/10/16 13:44> <SHERRELL CROWLEY - Last Filed: 11/10/16 21:25> - Discharge Clinical Impression: Dizziness, Vasovagal near syncope, Situational hypertension Diarrhea Qualifiers: Diarrhea type: unspecified type Qualified Code(s): R19.7 - Diarrhea, unspecified Condition: Stable Disposition: HOME, SELF-CARE Additional Instructions: Please follow up with her primary care physician closely as an outpatient. Please return should you have more dizziness, should she develop any chest pain , develop any difficulty walking or any new or concerning symptoms. Referrals: ARIK SHI MD [Primary Care Provider] - Follow up as needed Scribe Attestation: 11/10/16 21:25 I personally performed the services described in the documentation, reviewed and edited the documentation which was dictated to the scribe in my presence, and it accurately records my words and actions. (SHERRELL CROWLEY) Scribe Documentation - Scribe Written by Dheerajibe:: betty Braun, 11/10/16, 1352 acting as scribe for :: Tl <THERESA SUMMERS - Last Filed: 11/10/16 13:44>
[2016-11-10 12:53] VITALS: BP 139/86
--- NOTE | 2016-11-10 13:52 | EKG REPORT ---
SEVERITY:- BORDERLINE ECG - SINUS RHYTHM BORDERLINE R WAVE PROGRESSION, ANTERIOR LEADS BORDERLINE T WAVE ABNORMALITIES : Confirmed by: Jannet Ramirez 10-Nov-2016 13:52:07
== END 2016-11-10 13:24 | disposition home or self-care (01) ==
LOC: ER 09:54
DX: R42 Dizziness and giddiness (principal); R55 Syncope and collapse; R19.7 Diarrhea, unspecified; R53.1 Weakness; F17.210 Nicotine dependence, cigarettes, uncomplicated; I11.0 Hypertensive heart disease with heart failure; Z91.040 Latex allergy status; Z88.6 Allergy status to analgesic agent; I50.9 Heart failure, unspecified; E78.00 Pure hypercholesterolemia, unspecified; E11.9 Type 2 diabetes mellitus without complications; Z85.3 Personal history of malignant neoplasm of breast; Z90.12 Acquired absence of left breast and nipple
CPT/HCPCS: 36415; 70450; 80053; 82550; 82553; 84484; 85025; 93005; 93010; 99284

== ENCOUNTER → 2016-12-29 | Outpatient (CLI) | payer MEDICARE, OTHER ==
[2016-12-29 13:51] LABS: APPEARANCE,URINE SLIGHTLY-CLOUDY; BILIRUBIN,URINE NEGATIVE (NEGATIVE); GLUCOSE, URINE NEGATIVE (NEGATIVE); KETONES,URINE NEGATIVE (NEGATIVE); LEUKOCYTE ESTERASE,URINE NEGATIVE (NEGATIVE); NITRITE,URINE NEGATIVE (NEGATIVE); PROTEIN,URINE 100 mg/dL (NEGATIVE); URINE SPECIFIC GRAVITY 1.011; UROBILINOGEN,URINE NEGATIVE mg/dL (<2.0)
[2016-12-29 14:00] LABS: ABSOLUTE EOSINOPHILS # (AUTO) 0.1 10^3/uL (0.0-0.6); ABSOLUTE LYMPHOCYTES (AUTO) 2.7 10^3/uL (0.5-4.7); ABSOLUTE MONOCYTES (AUTO) 0.6 10^3/uL (0.1-1.4); ABSOLUTE NEUT (AUTO) 5.2 10^3/uL (1.7-8.2); BASOPHILS % (AUTO) 0.5 % (0-2); EOSINOPHILS % (AUTO) 0.8 % (0-6); HEMATOCRIT 43.8 % (36.0-47.0); HEMOGLOBIN 14.7 g/dL (12.0-15.5); HGB HCT DIFFERENCE 0.3; LYMPHOCYTES % (AUTO) 31.7 % (13-45); MEAN CORPUSCULAR HEMOGLOBIN 33.2 pg (27.0-33.4); MEAN CORPUSCULAR HGB CONC 33.6 g/dL (32.0-36.0); MEAN CORPUSCULAR VOLUME 99 fl (80-97); MONOCYTES % (AUTO) 6.8 % (3-13); RED BLOOD COUNT 4.44 10^6/uL (3.72-5.28); RED CELL DISTRIBUTION WIDTH 14.8 % (11.5-14.0); SEGMENTED NEUTROPHILS % (AUTO) 60.2 % (42-78); WHITE BLOOD COUNT 8.6 10^3/uL (4.0-10.5)
[2016-12-29 14:05] LABS: ANION GAP 14 (5-19); BLOOD UREA NITROGEN 18 mg/dL (7-20); CALCIUM 10.5 mg/dL (8.4-10.2); CARBON DIOXIDE 25 mmol/L (22-30); CHLORIDE 94 mmol/L (98-107); CREATININE RESULT 0.87 mg/dL (0.52-1.25); GLUCOSE 90 mg/dL (75-110); POTASSIUM 4.6 mmol/L (3.6-5.0); SODIUM 132.9 mmol/L (137-145)
--- NOTE | 2016-12-29 14:29 | RADIOLOGY REPORT (SQ) ---
EXAM DESCRIPTION: CHEST PA/LATERAL COMPLETED DATE/TIME: 12/29/2016 1:04 pm REASON FOR STUDY: PRE-OP COMPARISON: 05/08/2016 EXAM PARAMETERS: NUMBER OF VIEWS: two views TECHNIQUE: Digital Frontal and Lateral radiographic views of the chest acquired. RADIATION DOSE: NA LIMITATIONS: none FINDINGS: LUNGS AND PLEURA: No opacities, masses or pneumothorax. No pleural effusion. MEDIASTINUM AND HILAR STRUCTURES: No masses or contour abnormalities. HEART AND VASCULAR STRUCTURES: Heart normal size. No evidence for failure. BONES: No acute findings. HARDWARE: None in the chest. OTHER: No other significant finding. IMPRESSION: NO SIGNIFICANT RADIOGRAPHIC FINDING IN THE CHEST. TECHNICAL DOCUMENTATION: JOB ID: [id number] [employer]- All Rights Reserved
--- NOTE | 2016-12-29 21:42 | EKG REPORT ---
SEVERITY:- NORMAL ECG - SINUS RHYTHM : Confirmed by: Jannet Ramirez 29-Dec-2016 21:41:56
== END ==
LOC: OD 12:12
PROVIDERS: ATTEND Orthopaedic Surgery
DX: Z01.810 Encounter for preprocedural cardiovascular examination (principal); Z01.812 Encounter for preprocedural laboratory examination; Z01.818 Encounter for other preprocedural examination; Z01.89 Encounter for other specified special examinations
CPT/HCPCS: 36415; 71020; 80048; 81001; 85025; 93005; 93010

== ENCOUNTER 2017-01-02 05:23 | Inpatient (IN) | payer MEDICARE, OTHER ==
[~2017-01-02 05:23] MED LIST: BUPIVACAINE INJ/PF LIPOSOME/PF 266 MG/20 ML SDV IJ PRN; CEFAZOLIN 1 GM/D5W RTU 1 GM/50 ML RTUPB IV PRN; CEFAZOLIN INJ 1 GM VIAL IV PRN; IBUPROFEN 800 MG/NS 250 ML IV PRN; LANSOPRAZOLE 15 MG TAB.RAP.DR PO PRN; OXYCODONE HCL SR 10 MG TABLET PO PRN; VANCOMYCIN HCL 1,000 MG in DEXTROSE 5%-WATER 250 ML IV PRN
[2017-01-02] MEDS ORDERED: MIDAZOLAM 2 MG/2 ML INJ ONE ×2 (07:12)
[2017-01-02] MEDS ORDERED: EPHEDRINE SULFATE INJ 50 MG/1 ML AMPULE ONE (07:12)
[2017-01-02] MEDS ORDERED: HYDROMORPHONE HCL INJ/PF 2 MG/ML AMPULE ONE (07:12)
[2017-01-02] MEDS ORDERED: FENTANYL CITRATE INJ/PF 250 MCG/5 ML AMPULE ONE (07:12)
[2017-01-02] MEDS ORDERED: IBUPROFEN INJ 800 MG/8 ML VIAL IV ONE (07:13)
[2017-01-02] MEDS ORDERED: THROMBIN (BOVINE) TOPICAL 20000 UNIT VIAL ONE (07:13)
[2017-01-02] MEDS ORDERED: TRANEXAMIC ACID INJ/PF 1,000 MG/10 ML SDV IV ONE ×2 (07:13→10:30)
[2017-01-02] MEDS ORDERED: PROPOFOL INJ 200 MG/20 ML VIAL IV ONE (07:13)
[2017-01-02] MEDS ORDERED: ONDANSETRON HCL INJ/PF 4 MG/2 ML SDV ONE (07:13)
[2017-01-02] MEDS ORDERED: THROMBIN (BOVINE) 5000 UNIT EPITAXIS KIT ONE (07:14)
[2017-01-02] MEDS ORDERED: BUPIVACAINE INJ/PF LIPOSOME/PF 266 MG/20 ML SDV ONE (07:14)
[2017-01-02] MEDS ORDERED: DIPHENHYDRAMINE HCL 50 MG/ML VIAL IV PRN ×2 (08:02→09:11)
[2017-01-02] MEDS ORDERED: FENTANYL CITRATE INJ/PF 100 MCG/2 ML AMPUL IV PRN ×3 (08:02)
[2017-01-02] MEDS ORDERED: VANCOMYCIN HCL INJ 1000 MG VIAL ONE (08:31)
--- NOTE | 2017-01-02 09:10 | Operative Report ---
Operative Report DATE OF SURGERY: 01/02/17 PREOPERATIVE DIAGNOSIS: Metastatic breast cancer to left femur with impending fracture OPERATION: Left hip arthroplasty. Left sciatic neural lysis. Left femur tumor resection SURGEON: EL BLACK ANESTHESIA: Spinal TISSUE REMOVED OR ALTERED: Bone tumor to pathology ESTIMATED BLOOD LOSS: 150 PROCEDURE: Patient had a right lateral decubitus position on the operating table the left lower extremity hindquarter prepped and draped in a sterile fashion. A curvilinear incision was made into the skin overlying the greater trochanter and a posterior approach the hip was taken. Prior to dislocation of the femoral head a trochanteric slide is performed to allow access to the underlying tumor for biopsy and resection purposes. Sciatic nerve was then found in the sciatic nerve notch and traced distally to the gluteal sling. Point the femoral head is dislocated the femoral neck transected. The tumors resected from the remaining proximal metadiaphysis of the femur. Attention was turned to the acetabulum. The acetabulum prepared using a series of hemispherical reamers until he 53 mm reamer seated. Subsequently a 54 mm stripe and try tandem hemispherical shell was impacted in position and secured with 3 screws. A 2 mm MDM liner was then impacted into the acetabular shell. Attention was turned to the femur. [place] came femoral canal using a box osteotome to ensure lateralization since the anterior posterior and medial aspects of the calcar are deficient from the underlying tumor and its resection. The femur was then prepared using cylindrical flexible reamers until a 12 mm reamer seated. Subsequently polymethylmethacrylate with tobramycin vancomycin was mixed and introduced to the canal. A Mumtaz Omnifit cemented long stem size 5 femur was then impacted down the femoral canal and the cement was allowed to set up. A trial reduction performed with a 7.5 mm neck which re-creates preoperative leg length and provides excellent anterior posterior stability. Head and neck were impacted onto the trunnion. The hip was reduced. The capsule was imbricated behind the femoral head for stability. The trochanteric slide is repaired using interrupted #5 FiberWire suture. The remainder the wound is irrigated and closed in layers interrupted Vicryl followed by aydin. A sterile dressing is applied and the patient's return to the PACU in satisfactory condition.
[2017-01-02] MEDS ORDERED: RINGERS SOLUTION,LACTATED 1,000 ML IV PRN (09:11)
[2017-01-02] MEDS ORDERED: ONDANSETRON 4 MG TAB.RAPDIS PO PRN (09:11)
[2017-01-02] MEDS ORDERED: MORPHINE SULFATE 10 MG/ML INJ IV PRN ×3 (09:11)
[2017-01-02] MEDS ORDERED: MORPHINE SULFATE 10 MG/ML INJ IM PRN (09:11)
[2017-01-02] MEDS ORDERED: DEXTROSE 40% GEL 15 GM TUBE X 2 PO PRN (09:45)
[2017-01-02] MEDS ORDERED: DEXTROSE 50%-WATER SYRINGE 25 GM/50 ML DOSE IV PRN (09:45)
[2017-01-02] MEDS ORDERED: DEXTROSE 40% GEL 15 GM TUBE PO PRN (09:45)
[2017-01-02] MEDS ORDERED: DEXTROSE 50%-WATER SYRINGE 12.5 GM/25 ML DOSE IV PRN (09:45)
[2017-01-02] MEDS ORDERED: GLUCAGON,HUMAN RECOMB 1 MG INJ IM PRN (09:45)
--- NOTE | 2017-01-02 10:01 | RADIOLOGY REPORT (SQ) ---
EXAM DESCRIPTION: PELVIS AP COMPLETED DATE/TIME: 01/02/2017 9:42 am REASON FOR STUDY: s/p left hip arthroplasty ( long stem) M84.559A PATHOLOGICAL FRACTURE IN NEOPLAST IC DISEASE, HIP, U COMPARISON: None. NUMBER OF VIEWS: Two views TECHNIQUE: AP Pelvis LIMITATIONS: None. FINDINGS: MINERALIZATION: Normal. HIPS: Status post left total hip replacement with long shafted femoral component. Acetabular compone nt is transfixed by 3 screws, 1 of which has little if any bony purchase. Lucency in the intertrocha nteric region consistent with history of pathologic fracture. Fracture line is noted through the gre ater trochanter. PELVIS AND SACRUM: No acute fracture or dislocation. No worrisome bone lesions. PUBIS AND ISCHIUM: No acute fracture. LOWER LUMBAR SPINE: No significant findings as visualized. SOFT TISSUES: Soft tissue gas multiple skin aydin laterally. Calcified uterine fibroid. OTHER: No other significant finding. IMPRESSION: Status post left total hip replacement with findings consistent with history of patholog ic fracture involving the proximal femur. TECHNICAL DOCUMENTATION: JOB ID: [id number] [employer]- All Rights Reserved
[2017-01-02] MEDS: METOPROLOL SUCCINATE 50 MG TAB.SR.24H PO SCH ×2 (11:03→20:28)
[2017-01-02] MEDS: GABAPENTIN 300 MG CAPSULE PO SCH ×2 (14:02→20:30)
[2017-01-02] MEDS: LORAZEPAM 1 MG TABLET PO SCH ×2 (14:02→17:23)
[2017-01-02] MEDS: OXYCODONE HCL IR 5 MG TABLET PO PRN (14:06)
[2017-01-02] MEDS: HYDROMORPHONE HCL INJ/PF 2 MG/ML AMPULE IV PRN ×4 (15:55→23:20)
[2017-01-02] MEDS: AMLODIPINE BESYLATE 5 MG TABLET PO SCH (17:23)
[2017-01-02] MEDS: IBUPROFEN 800 MG in NORMAL SALINE 250 ML IV SCH (17:24)
[2017-01-02] MEDS: RIVAROXABAN 10 MG TABLET PO SCH (20:29)
[2017-01-02] MEDS ORDERED: VANCOMYCIN HCL 1,000 MG in DEXTROSE 5%-WATER 250 ML IV ONE (21:00)
[2017-01-02] MEDS: INSULIN LISPRO 100 UNIT/ML 3 ML VIAL SUBCUT PRN (23:21)
[2017-01-03] MEDS: HYDROMORPHONE HCL INJ/PF 2 MG/ML AMPULE IV PRN ×6 (01:31→15:14)
[2017-01-03] MEDS: IBUPROFEN 800 MG in NORMAL SALINE 250 ML IV SCH ×3 (01:31→17:28)
[2017-01-03] MEDS: OXYCODONE HCL IR 5 MG TABLET PO PRN ×4 (01:38→17:29)
[2017-01-03] MEDS: LANSOPRAZOLE 30 MG TAB.RAP.DR PO SCH (05:51)
[2017-01-03] MEDS: GABAPENTIN 300 MG CAPSULE PO SCH ×3 (05:52→22:06)
[2017-01-03 06:05] LABS: HEMATOCRIT 33.3 % (36.0-47.0); HEMOGLOBIN 11.2 g/dL (12.0-15.5); HGB HCT DIFFERENCE 0.3; MEAN CORPUSCULAR HEMOGLOBIN 33.5 pg (27.0-33.4); MEAN CORPUSCULAR HGB CONC 33.7 g/dL (32.0-36.0); MEAN CORPUSCULAR VOLUME 100 fl (80-97); RED BLOOD COUNT 3.34 10^6/uL (3.72-5.28); RED CELL DISTRIBUTION WIDTH 14.9 % (11.5-14.0); WHITE BLOOD COUNT 7.6 10^3/uL (4.0-10.5)
[2017-01-03 06:20] LABS: ANION GAP 9 (5-19); BLOOD UREA NITROGEN 22 mg/dL (7-20); CALCIUM 8.7 mg/dL (8.4-10.2); CARBON DIOXIDE 20 mmol/L (22-30); CHLORIDE 107 mmol/L (98-107); CREATININE RESULT 1.02 mg/dL (0.52-1.25); GLUCOSE 136 mg/dL (75-110); POTASSIUM 4.6 mmol/L (3.6-5.0); SODIUM 136.1 mmol/L (137-145)
[2017-01-03] MEDS ORDERED: (PENDING PHARMACY ID) (Lisinopril [Lisinopril] 40 MG) PO SCH (08:00)
[2017-01-03] MEDS: GLIPIZIDE XL 5 MG TAB.ER.24 PO SCH (08:11)
--- NOTE | 2017-01-03 08:31 | PDOC PROGRESS REPORT ---
Subjective Progress Note for:: 01/03/17 Subjective:: Patient seen and evaluated this morning. States pain is controlled has no issues with pain during ambulation and physical therapy but does have discomfort when getting in and out of bed. Zoë has been DC'd this morning. Denies chest pain or shortness of breath. Physical Exam Vital Signs: Temp Pulse Resp BP Pulse Ox 98.4 F 81 14 121/63 97 01/02/17 23:41 01/02/17 23:41 01/02/17 23:41 01/02/17 23:41 01/02/17 23:41 Intake & Output 01/02/17 01/03/17 01/04/17 06:59 06:59 06:59 Intake Total 0 4300 Output Total 4600 Balance 0 -300 Weight 80.2 kg Musculoskeletal exam: PRESENT: other - Left lower extremity: Dressing clean/dry/ intact no erythema or drainage. Intact plantar flexion/dorsiflexion. No calf tenderness. Cap refill less than 2 seconds. No evidence of limb length inequality or malrotation. Results Laboratory Results: 01/03/17 05:39 01/03/17 05:39 01/03/17 01/03/17 05:39 05:39 WBC 7.6 RBC 3.34 L Hgb 11.2 L Hct 33.3 L MCV 100 H MCH 33.5 H MCHC 33.7 RDW 14.9 H Plt Count 193 Sodium 136.1 L Potassium 4.6 Chloride 107 Carbon Dioxide 20 L Anion Gap 9 BUN 22 H Creatinine 1.02 Est GFR ( Amer) > 60 Est GFR (Non-Af Amer) 54 L Glucose 136 H Calcium 8.7 Impressions: Pelvis X-Ray 01/02/17 09:23 IMPRESSION: Status post left total hip replacement with findings consistent with history of pathologic fracture involving the proximal femur. Assessment & Plan - Diagnosis (1) Arthritis of left hip Is this a current diagnosis for this admission?: YesPlan: Postop day 1 status post left total hip arthroplasty for hip DJD/metastasis #1 pain control #2 physical therapy with hip precautions #3 Xarelto for DVT prophylaxis #4 discharge planning home health versus [facility] facility will continue to monitor
[2017-01-03] MEDS: LISINOPRIL 10 MG TABLET PO SCH (10:25)
[2017-01-03] MEDS: METOPROLOL SUCCINATE 50 MG TAB.SR.24H PO SCH (10:26)
[2017-01-03] MEDS: ALLOPURINOL 300 MG TABLET PO SCH (10:26)
[2017-01-03] MEDS: LORAZEPAM 1 MG TABLET PO SCH ×3 (10:27→17:30)
[2017-01-03] MEDS ORDERED: OXYCODONE HCL SR 10 MG TABLET PO ONE (11:15)
[2017-01-03] MEDS: AMLODIPINE BESYLATE 5 MG TABLET PO SCH (17:29)
[2017-01-03] MEDS: RIVAROXABAN 10 MG TABLET PO SCH (22:04)
[2017-01-03] MEDS: OXYCODONE HCL SR 10 MG TABLET PO SCH (22:05)
[2017-01-03] MEDS: INSULIN LISPRO 100 UNIT/ML 3 ML VIAL SUBCUT PRN (22:06)
[2017-01-04] MEDS: METOPROLOL SUCCINATE 50 MG TAB.SR.24H PO SCH ×3 (00:06→21:19)
[2017-01-04] MEDS: OXYCODONE HCL IR 5 MG TABLET PO PRN ×3 (01:19→19:36)
[2017-01-04] MEDS: IBUPROFEN 800 MG in NORMAL SALINE 250 ML IV SCH ×2 (01:20→09:05)
[2017-01-04] MEDS: GABAPENTIN 300 MG CAPSULE PO SCH ×3 (06:02→21:19)
[2017-01-04] MEDS: LANSOPRAZOLE 30 MG TAB.RAP.DR PO SCH (06:02)
[2017-01-04 06:32] LABS: HEMATOCRIT 28.8 % (36.0-47.0); HEMOGLOBIN 9.8 g/dL (12.0-15.5); HGB HCT DIFFERENCE 0.6; MEAN CORPUSCULAR HEMOGLOBIN 33.6 pg (27.0-33.4); MEAN CORPUSCULAR HGB CONC 33.9 g/dL (32.0-36.0); MEAN CORPUSCULAR VOLUME 99 fl (80-97); RED BLOOD COUNT 2.91 10^6/uL (3.72-5.28); RED CELL DISTRIBUTION WIDTH 14.9 % (11.5-14.0); WHITE BLOOD COUNT 8.1 10^3/uL (4.0-10.5)
[2017-01-04] MEDS: GLIPIZIDE XL 5 MG TAB.ER.24 PO SCH (08:19)
[2017-01-04] MEDS: ALLOPURINOL 300 MG TABLET PO SCH (09:05)
[2017-01-04] MEDS: LORAZEPAM 1 MG TABLET PO SCH ×3 (09:05→17:53)
[2017-01-04] MEDS: OXYCODONE HCL SR 10 MG TABLET PO SCH (09:06)
--- NOTE | 2017-01-04 09:15 | PDOC PROGRESS REPORT ---
Subjective Progress Note for:: 01/04/17 Subjective:: Patient complaining of excruciating pain with motion Physical Exam Vital Signs: Temp Pulse Resp BP Pulse Ox 36.8 C 80 17 101/59 L 95 01/04/17 07:48 01/04/17 07:48 01/04/17 07:48 01/04/17 07:48 01/04/17 07:48 Intake & Output 01/03/17 01/04/17 01/05/17 06:59 06:59 06:59 Intake Total 4300 990 Output Total 4600 0 Balance -300 990 Weight 80.2 kg 79.4 kg General appearance: PRESENT: mild distress, well-developed Head exam: PRESENT: normocephalic Eye exam: PRESENT: EOMI Respiratory exam: PRESENT: unlabored Cardiovascular exam: PRESENT: RRR Pulses: PRESENT: +1 pedal pulses bilateral Vascular exam: PRESENT: normal capillary refill GI/Abdominal exam: PRESENT: soft Rectal exam: PRESENT: deferred Extremities exam: PRESENT: other - Lower extremity dressing clean dry and intact. Leg lengths are equal. Distal neurovascular examination is intact. Gentle passive range of motion of the left lower extremities does not appear to cause any significant discomfort. Neurological exam: PRESENT: alert, awake, oriented to person, oriented to place , oriented to time, oriented to situation. ABSENT: motor sensory deficit Psychiatric exam: PRESENT: appropriate affect, normal mood. ABSENT: homicidal ideation, suicidal ideation Skin exam: PRESENT: dry, intact, warm. ABSENT: cyanosis, rash Results Laboratory Results: 01/04/17 05:55 01/03/17 05:39 01/04/17 05:55 WBC 8.1 RBC 2.91 L Hgb 9.8 L Hct 28.8 L MCV 99 H MCH 33.6 H MCHC 33.9 RDW 14.9 H Plt Count 179 Impressions: Pelvis X-Ray 01/02/17 09:23 IMPRESSION: Status post left total hip replacement with findings consistent with history of pathologic fracture involving the proximal femur. Status: Imported from PACS Assessment & Plan - Diagnosis (1) Pathologic fracture Qualifiers: Pathology associated with fracture: neoplastic disease Site of pathological fracture: femur Encounter type: subsequent encounter Laterality: left Is this a current diagnosis for this admission?: YesPlan: Patient status post left hip arthroplasty for an impending pathologic fracture secondary to metastatic breast carcinoma. At this point her pain control is interfering with her ability to ambulate with physical therapy. Will increase her OxyContin to 40 mg p.o. twice daily. - Time Time Spent with patient: 15-24 minutes Anticipated discharge: Home with Homehealth Within: Other
[2017-01-04] MEDS: LISINOPRIL 10 MG TABLET PO SCH (09:16)
[2017-01-04] MEDS: AMLODIPINE BESYLATE 5 MG TABLET PO SCH (17:53)
[2017-01-04] MEDS: OXYCODONE HCL SR 40 MG TABLET PO SCH (21:19)
[2017-01-04] MEDS: RIVAROXABAN 10 MG TABLET PO SCH (21:20)
[2017-01-04] MEDS: HYDROMORPHONE HCL INJ/PF 2 MG/ML AMPULE IV PRN (22:34)
[2017-01-04] MEDS: INSULIN LISPRO 100 UNIT/ML 3 ML VIAL SUBCUT PRN (23:44)
[2017-01-05] MEDS: OXYCODONE HCL IR 5 MG TABLET PO PRN ×2 (01:55→09:32)
[2017-01-05] MEDS: HYDROMORPHONE HCL INJ/PF 2 MG/ML AMPULE IV PRN (05:05)
[2017-01-05] MEDS: LANSOPRAZOLE 30 MG TAB.RAP.DR PO SCH (05:09)
[2017-01-05] MEDS: GABAPENTIN 300 MG CAPSULE PO SCH (05:09)
[2017-01-05 05:35] LABS: HEMATOCRIT 29.9 % (36.0-47.0); HEMOGLOBIN 10.1 g/dL (12.0-15.5); HGB HCT DIFFERENCE 0.4; MEAN CORPUSCULAR HEMOGLOBIN 33.6 pg (27.0-33.4); MEAN CORPUSCULAR HGB CONC 33.6 g/dL (32.0-36.0); MEAN CORPUSCULAR VOLUME 100 fl (80-97); RED BLOOD COUNT 2.99 10^6/uL (3.72-5.28); RED CELL DISTRIBUTION WIDTH 14.9 % (11.5-14.0); WHITE BLOOD COUNT 8.8 10^3/uL (4.0-10.5)
--- NOTE | 2017-01-05 07:24 | PDOC PROGRESS REPORT ---
Subjective Progress Note for:: 01/05/17 Subjective:: With continued complaints of pain out of proportion to what would be expected from the magnitude of her surgery. This is in spite of increasing her pain medicine yesterday. She continues to use IV Dilaudid in addition to OxyContin and oxycodone. Physical Exam Vital Signs: Temp Pulse Resp BP Pulse Ox 38.4 C H 107 H 16 127/65 H 94 01/05/17 00:55 01/05/17 00:55 01/05/17 00:55 01/05/17 00:55 01/05/17 00:55 Intake & Output 01/04/17 01/05/17 01/06/17 06:59 06:59 06:59 Intake Total 990 1280 Output Total 0 1900 Balance 990 -620 Weight 79.4 kg General appearance: PRESENT: no acute distress Head exam: PRESENT: normocephalic Eye exam: PRESENT: EOMI Respiratory exam: PRESENT: unlabored Cardiovascular exam: PRESENT: RRR Pulses: PRESENT: +1 pedal pulses bilateral Vascular exam: PRESENT: normal capillary refill GI/Abdominal exam: PRESENT: soft, other - Complaining of constipation. Musculoskeletal exam: PRESENT: other - Left hip picot dressing clean dry and intact. Leg lengths are equal. Distal neurovascular examination is intact. Neurological exam: PRESENT: alert, awake, oriented to person, oriented to place , oriented to time, oriented to situation, CN II-XII grossly intact. ABSENT: motor sensory deficit Psychiatric exam: PRESENT: appropriate affect, normal mood. ABSENT: homicidal ideation, suicidal ideation Skin exam: PRESENT: dry, intact, warm. ABSENT: cyanosis, rash Results Laboratory Results: 01/05/17 05:20 01/03/17 05:39 01/05/17 05:20 WBC 8.8 RBC 2.99 L Hgb 10.1 L Hct 29.9 L MCV 100 H MCH 33.6 H MCHC 33.6 RDW 14.9 H Plt Count 203 Impressions: Pelvis X-Ray 01/02/17 09:23 IMPRESSION: Status post left total hip replacement with findings consistent with history of pathologic fracture involving the proximal femur. Status: Imported from PACS Assessment & Plan - Diagnosis (1) Pathologic fracture Qualifiers: Pathology associated with fracture: neoplastic disease Site of pathological fracture: femur Encounter type: subsequent encounter Laterality: left Is this a current diagnosis for this admission?: YesPlan: Patient ambulated 40 feet yesterday with physical therapy. (2) Constipation Is this a current diagnosis for this admission?: YesPlan: Be treated with an oral laxative today. (3) Urinary tract infection Is this a current diagnosis for this admission?: YesPlan: To be sent for UA, C&S - Time Time Spent with patient: 15-24 minutes Anticipated discharge: SNF Within: within 24 hours
[2017-01-05] MEDS: INSULIN LISPRO 100 UNIT/ML 3 ML VIAL SUBCUT PRN (08:16)
[2017-01-05] MEDS: GLIPIZIDE XL 5 MG TAB.ER.24 PO SCH (08:17)
[2017-01-05] MEDS ORDERED: MAGNESIUM CITRATE 296 ML BOTTLE PO ONE (09:00)
[2017-01-05] MEDS: METOPROLOL SUCCINATE 50 MG TAB.SR.24H PO SCH (09:25)
[2017-01-05] MEDS: LISINOPRIL 10 MG TABLET PO SCH (09:32)
[2017-01-05] MEDS: LORAZEPAM 1 MG TABLET PO SCH (09:32)
[2017-01-05] MEDS: ALLOPURINOL 300 MG TABLET PO SCH (09:32)
--- NOTE | 2017-01-05 09:46 | PDOC TRANSFER SUMMARY ---
General - Admit/Disc Date/PCP Admission Date/Primary Care Provider: 01/02/17 05:23 ARIK SHI MD Discharge Date: 01/05/17 - Discharge Diagnosis (1) Pathologic fracture Is this a current diagnosis for this admission?: Yes (2) Constipation Is this a current diagnosis for this admission?: Yes (3) Urinary tract infection Is this a current diagnosis for this admission?: Yes - Additional Information Resuscitation Status: Full Code Discharge Diet: Regular Discharge Activity: Balance Activity w/Rest Home Medications: Allopurinol [Zyloprim 300 mg Tablet] 300 mg PO QAM 07/17/15 Aspirin [Aspirin EC] 81 mg PO DAILY 07/17/15 Glipizide [Glipizide Xl] 10 mg PO QAM 07/17/15 Lisinopril 40 mg PO QAM 07/17/15 Metoprolol Succinate [Toprol Xl] 100 mg PO BID 07/17/15 Lorazepam 1 mg PO TID 05/08/16 Gabapentin [Neurontin 300 mg Capsule] 300 mg PO TID 11/02/16 Amlodipine Besylate 5 mg PO QPM 12/29/16 Tramadol HCl 50 mg PO BID 12/29/16 Oxycodone HCl [Oxy-Ir 5 mg Tablet] 5 mg PO Q6HP PRN #0 tablet 01/05/17 Oxycodone HCl [Oxycontin Sr 40 mg Tablet] 40 mg PO Q12 #0 tab.sr.12h 01/05/17 Rivaroxaban [Xarelto 10 mg Tablet] 10 mg PO QHS #0 tablet 01/05/17 History of Present Illness Admission Date/PCP: 01/02/17 05:23 ARIK SHI MD History of Present Illness: BLAKE ADEN is a 66 year old female with 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 Patient admitted for stabilization of impending fracture Hospital Course Hospital Course: Patient admitted through operative room where she undergoes L MARCELINO. returned to the floor and begun on WBAT with PT Physical Exam Vital Signs: Temp Pulse Resp BP Pulse Ox 37.0 C 79 16 107/63 97 01/05/17 08:00 01/05/17 08:00 01/05/17 08:00 01/05/17 08:00 01/05/17 08:00 Intake & Output 01/04/17 01/05/17 01/06/17 06:59 06:59 06:59 Intake Total 990 1280 Output Total 0 1900 Balance 990 -620 Weight 79.4 kg General appearance: PRESENT: mild distress Head exam: PRESENT: normocephalic Eye exam: PRESENT: EOMI Respiratory exam: PRESENT: unlabored Cardiovascular exam: PRESENT: RRR Pulses: PRESENT: +1 pedal pulses bilateral GI/Abdominal exam: PRESENT: soft Rectal exam: PRESENT: deferred Extremities exam: PRESENT: other - left hip dressing clean and dry Neurological exam: PRESENT: alert, awake, oriented to person, oriented to place , oriented to time, oriented to situation, CN II-XII grossly intact. ABSENT: motor sensory deficit Psychiatric exam: PRESENT: appropriate affect, normal mood. ABSENT: homicidal ideation, suicidal ideation Skin exam: PRESENT: dry, intact, warm. ABSENT: cyanosis, rash Results Laboratory Results: 01/05/17 05:20 01/03/17 05:39 01/05/17 05:20 WBC 8.8 RBC 2.99 L Hgb 10.1 L Hct 29.9 L MCV 100 H MCH 33.6 H MCHC 33.6 RDW 14.9 H Plt Count 203 Impressions: Pelvis X-Ray 01/02/17 09:23 IMPRESSION: Status post left total hip replacement with findings consistent with history of pathologic fracture involving the proximal femur. Status: Imported from PACS Transfer Plan - Disposition Transfer Plan: Patient to be transferred to SNF for ongoing rehab, WBAT. Som dressing to be removed on POD #7 and replaced with opsite. F/U Dr Laws 2 weeks Qualifiers PATEINT BEING DISCHARGED WITH ANY OF THE FOLLOWING DIAGNOSIS?: No VTE patient discharged on overlapping Therapy?: Yes Plan Discharge Plan: transfer to SNF
[2017-01-05] MEDS: OXYCODONE HCL SR 40 MG TABLET PO SCH (11:10)
[2017-01-05 14:15] VITALS: BP 110/68
== END 2017-01-05 14:20 | DRG 470 ==
LOC: INOR 05:23 → 4S 10:43
PROVIDERS: ADMIT Orthopaedic Surgery; ATTEND Orthopaedic Surgery
PROC: 0SRB0J9 Replacement of Left Hip Joint with Synthetic Substitute, Cemented, Open Approach (ICD-10-PCS; principal; 2017-01-02 07:30)
DX: M84.559A Pathological fracture in neoplastic disease, hip, unspecified, initial encounter for fracture (principal); C79.51 Secondary malignant neoplasm of bone; N39.0 Urinary tract infection, site not specified; I10 Essential (primary) hypertension; E78.5 Hyperlipidemia, unspecified; E11.9 Type 2 diabetes mellitus without complications; K21.9 Gastro-esophageal reflux disease without esophagitis; G62.9 Polyneuropathy, unspecified; K59.00 Constipation, unspecified; C50.912 Malignant neoplasm of unspecified site of left female breast; F17.210 Nicotine dependence, cigarettes, uncomplicated; Z79.82 Long term (current) use of aspirin; Z79.84 Long term (current) use of oral hypoglycemic drugs; Z79.899 Other long term (current) drug therapy
CPT/HCPCS: 01214; 36415; 72170; 80048; 82947; 82962; 85027; 86850; 86900; 86901; 88305; 88307; 88331; 88341; 88342; 94799; C1713; C1898; C9290; G8978-GP; G8979-GP; G8987-GO; G8988-GO; J0690; J1170; J1741; J1815; J2250; J2405; J2704; J3010; J3370; J3490; J7050; J7060

== ENCOUNTER → 2017-05-11 | Outpatient (CLI) | payer MEDICARE, OTHER ==
[~2017-05-11] MED LIST changes: +AMINOPHYLLINE INJ/PF 250 MG/10 ML SDV IV ONE; -BUPIVACAINE INJ/PF LIPOSOME/PF 266 MG/20 ML SDV IJ PRN; -CEFAZOLIN 1 GM/D5W RTU 1 GM/50 ML RTUPB IV PRN; -CEFAZOLIN INJ 1 GM VIAL IV PRN; -IBUPROFEN 800 MG/NS 250 ML IV PRN; -LANSOPRAZOLE 15 MG TAB.RAP.DR PO PRN; -OXYCODONE HCL SR 10 MG TABLET PO PRN; +REGADENOSON INJ 0.4 MG/5 ML DISP.SYRIN IV ONE; -VANCOMYCIN HCL 1,000 MG in DEXTROSE 5%-WATER 250 ML IV PRN
--- NOTE | 2017-05-12 11:52 | DRAGON STRESS TEST REPORT ---
INTRAVENOUS LEXISCAN CARDIOLITE STRESS TEST USING SINGLE PHOTON EMMISION COMPUTERIZED TOMOGRAPHIC. DATE OF PROCEDURE: May 11, 2017 INDICATION : Chest pain CARDIAC RISK FACTORS: Diabetes, hypertension, dyslipidemia, tobacco abuse RESTING EKG: Sinus rhythm without any baseline ST-T wave changes STRESS EKG: No significant changes noted with LexiScan bolus REASON FOR TERMINATION: Protocol. PROCEDURE REPORT: Baseline heart rate 70 beats per minute with blood pressure of 153/73. Patient had no significant complaints. Heart rate at 2 minutes post bolus 82 with a blood pressure of 139/69. 3 minutes post bolus heart rate 81 with blood pressure of 140/71. No significant EKG changes were noted. Patient had no significant complaints during the procedure or postprocedure. Patient injected with Aminophyllin 75 mg at 3 minutes or later after Lexiscan bolus. CONCLUSIONS: Normal EKG and hemodynamic response to IV LexiScan. NUCLEAR DATA: At rest the patient was given 11.72 millicuries of technetium 99 sestamibi injected intravenously. As per protocol rest gated SPECT images were obtained. Subsequently the patient was given intravenous LexiScan at a dose of 0.4 mg in 5 mL intravenously, followed by flush with normal saline. Subsequently the stress dose of 35.1 millicuries of technetium 99 sestamibi was injected intravenously. As per protocol stress gated images were obtained. NUCLEAR INTERPRETATION: Both raw and processed data were used for interpretation. Visual, qualitative, computer-generated quantitative data was used. There was good myocardial uptake of technetium compound. Motion artifact and soft tissue attenuations were noted. Increased visceral uptake was noted. No definitive areas of transient perfusion defect noted. No definitive areas of fixed perfusion defect or scars noted. EKG gated imaging showed LV EF at 69 %, rest and stress gated EF similar visually. T. I D. ratio was 1.10. Lung heart ratio noted to be within normal limits 0.29. No significant extracardiac and abnormal radiotracer activities were noted. RV free wall uptake was noted to be WNL. IMPRESSION: Also refer to comments under nuclear interpretation. Also test results needs to be interpreted in the context of pretest probability. 1. There is no definitive scintigraphic evidence of LexiScan induced myocardial ischemia. 2. There is no definitive scintigraphic evidence of myocardial infarction/scar. 3. EKG gated imaging shows left ventricular ejection fraction of approximately 69 %. 4. Clinical correlation requested as occasionally single vessel disease or balanced ischemia could be missed. In approximately 10% of the cases Lexiscan may not cause adequate vasodilatory stress. RECOMMENDATIONS: Aggressive risk factor modification, medical therapy. Clinical correlation with echocardiogram derived ejection fraction. Inability to exercise by itself can lead to increased cardiovascular event risks. Consider cardiology consultation and or follow-up if clinically indicated. Jannet Ramirez M.D., [facility] CENTERBacilio Appeals Officer fried cake maker, Board certified in cardiovascular diseases, Nuclear cardiology, Echocardiography Cardiac CT and cardiac MRI Ph. [phone] [facility]
== END ==
LOC: RAD 07:46
PROVIDERS: ATTEND Internal Medicine Cardiovascular Disease
DX: R07.9 Chest pain, unspecified (principal); I10 Essential (primary) hypertension; E11.9 Type 2 diabetes mellitus without complications; E78.5 Hyperlipidemia, unspecified; Z72.0 Tobacco use
CPT/HCPCS: 78452; A9500; J2785; J0280; Q9969

== ENCOUNTER → 2017-06-13 | Outpatient (CLI) | payer MEDICARE, OTHER ==
--- NOTE | 2017-06-13 11:16 | RADIOLOGY REPORT (SQ) ---
EXAM DESCRIPTION: DUPLEX ART/MILAD FLOW COMPLETE COMPLETED DATE/TIME: 06/13/2017 9:57 am REASON FOR STUDY: HTN (I10) I10 ESSENTIAL (PRIMARY) HYPERTENSION COMPARISON: CT abdomen pelvis 09/05/2014, 02/22/2015, 05/18/2016 TECHNIQUE: Realtime and static grayscale images acquired. Selected color Doppler, velocities and spe ctral images recorded. LIMITATIONS: Renal artery origins difficult to visualize off the aorta FINDINGS: RIGHT KIDNEY: RENAL ARTERY VELOCITIES: At the hilum, 140 cm/sec. Segmental artery velocity 59 cm/sec. RENAL VEIN: Color doppler flow present, patent. VELOCITY RATIO: 1.4. Normal waveforms. KIDNEY: Normal size 10 cm in length. No significant pathology. LEFT KIDNEY: RENAL ARTERY VELOCITIES: 81 cm/sec. Segmental artery velocity 45 cm/sec. RENAL VEIN: Color doppler flow present, patent. VELOCITY RATIO: 0.8. Normal waveforms. KIDNEY: Normal size 9.4 cm in length. Dromedary hump along the left mid pole kidney BLADDER: Normal. OTHER: Incidental finding of a calcified fundal uterine fibroid about 3 cm in size. IMPRESSION: NO DOPPLER EVIDENCE OF HEMODYNAMICALLY SIGNIFICANT RENAL ARTERY STENOSIS. PLEASE NOTE T HERE IS LIMITED VISUALIZATION OF THE PROXIMAL RIGHT RENAL ARTERY. DOPPLER WAVEFORMS AT THE RIGHT OVI AL HILUM SUGGESTS AGAINST PROXIMAL RIGHT RENAL ARTERY STENOSIS PROBABLE DROMEDARY HUMP LEFT MID POLE KIDNEY. COMMENT: NORMAL RENAL ARTERY/AORTA VELOCITY RATIO IS LESS THAN OR EQUAL TO 3.5. TECHNICAL DOCUMENTATION: JOB ID: [id number] [employer]- All Rights Reserved
== END ==
LOC: RAD 08:54
PROVIDERS: ATTEND Internal Medicine Cardiovascular Disease
DX: I10 Essential (primary) hypertension (principal)
CPT/HCPCS: 93975

== ENCOUNTER 2018-05-26 10:10 | Emergency (ER) | payer MEDICARE, OTHER ==
[2018-05-26] MEDS ORDERED: DEXTROSE 5%-1/2 NORMAL SALINE 1,000 ML IV ONE (10:40)
[2018-05-26] MEDS ORDERED: PROMETHAZINE HCL INJ 25 MG/1 ML VIAL IV ONE (10:42)
--- NOTE | 2018-05-26 10:45 | ER Document Report ---
ED Blood Sugar Problem - General Chief Complaint: Low Blood Sugar Stated Complaint: ABDOMINAL PAIN Time Seen by Provider: 05/26/18 10:28 TRAVEL OUTSIDE OF THE [place] IN LAST 30 DAYS: No - HPI Notes: Patient is a 67-year-old female that presents to the emergency department for chief complaint of accidental insulin overdose. At 730 this morning patient accidentally gave herself 36 units of her NovoLog instead of her Lantus. She states she has been checking her glucose since and despite drinking melania holley she is having a decline in her blood glucose. She states her last one was 20 minutes ago at 112. She reports she has had nausea vomiting and diarrhea over the last 3 days. She has been taking Zofran at home with some improvement of her nausea. She denies any abdominal pain or dysuria. She does states she recently finished antibiotics for a urinary tract infection. She denies any continued dysuria. Patient is currently on chemotherapy for breast cancer Past Medical History: Metastatic breast cancer, diabetes Past Surgical History: Reviewed in chart Social History: Denies drugs alcohol and tobacco Family History: Reviewed and noncontributory for presenting illness Allergies: Reviewed, see documented allergy list. REVIEW OF SYSTEMS: CONSTITUTIONAL : No fever No chills No diaphoresis No recent illness EENT: No vision changes No congestion No sore throat CARDIOVASCULAR: No chest pain No palpitations RESPIRATORY: No shortness of breath No cough No difficulty breathing GASTROINTESTINAL: No abdominal pain nausea vomiting diarrhea GENITOURINARY: No dysuria No hematuria No difficulty urinating MUSCULOSKELETAL: No back pain No leg pain No arm pain SKIN: No rashes No lesions LYMPHATIC: No swollen, enlarged glands. NEUROLOGICAL: No lightheadedness No headache No weakness No paresthesias PSYCHIATRIC: No anxiety No depression PHYSICAL EXAMINATION: Vital signs reviewed, nursing noted reviewed. GENERAL: Well-appearing, well-nourished and in no acute distress. HEAD: Atraumatic, normocephalic. EYES: Eyes appear normal, extraocular movements intact, sclera anicteric, conjunctiva are normal. ENT: nares patent, oropharynx clear without exudates. Moist mucous membranes. NECK: Normal range of motion, supple without lymphadenopathy LUNGS: Breath sounds clear to auscultation bilaterally and equal. No wheezes rales or rhonchi. HEART: Regular rate and rhythm without murmurs ABDOMEN: Soft, nontender, normoactive bowel sounds. No rebound, guarding, or rigidity. No masses appreciated. EXTREMITIES: Nontender, good range of motion, no pitting or edema. NEUROLOGICAL: No focal neurological deficits. Moves all extremities spontaneously Motor and sensory grossly intact on exam. PSYCH: Normal mood, normal affect. SKIN: Warm, Dry, normal turgor, no rashes or lesions noted on exposed skin - Related Data Allergies/Adverse Reactions: latex [Latex] Allergy (Intermediate, Verified 11/10/16 10:10) rash morphine [Morphine] Adverse Reaction (Intermediate, Verified 12/29/16 13:27) agitated,combative Past Medical History - Social History Smoking Status: Never Smoker Family History: Reviewed & Not Pertinent, Arthritis, CAD, CVA, DM, Hyperlipidemia, Hypertension, Malignancy, Other - Past Medical History Cardiac Medical History: Reports: Hx Hypercholesterolemia, Hx Hypertension Denies: Hx Atrial Fibrillation, Hx Congestive Heart Failure, Hx Coronary Artery Disease, Hx Heart Attack, Hx Peripheral Vascular Disease, Hx Pulmonary Embolism, Hx Heart Murmur Pulmonary Medical History: Reports: Hx Pneumonia Denies: Hx Asthma, Hx Bronchitis, Hx COPD, Hx Respiratory Failure, Hx Sleep Apnea, Hx Tuberculosis Neurological Medical History: Denies: Hx Cerebrovascular Accident, Hx Seizures Endocrine Medical History: Reports: Hx Diabetes Mellitus Type 2. Denies: Hx Graves' Disease, Hx Hyperthyroidism, Hx Hypothyroidism Renal/ Medical History: Denies: Hx End Stage Renal Disease, Hx Kidney Stones, Hx Ovarian Cysts, Hx Peritoneal Dialysis, Hx Pelvic Inflammatory Disease Malignancy Medical History: Reports: Hx Breast Cancer. Denies: Hx Cervical Cancer, Hx Leukemia, Hx Lung Cancer, Hx Ovarian Cancer GI Medical History: Reports: Hx Diverticulitis - diverticulosis, Hx Gastroesophageal Reflux Disease. Denies: Hx Crohn's Disease, Hx Hepatitis, Hx Hiatal Hernia, Hx Irritable Bowel, Hx Liver Failure, Hx Pancreatitis, Hx Ulcer Musculoskeletal Medical History: Reports Hx Arthritis, Denies Hx Fibromyalgia, Reports Hx Gout, Denies Hx Multiple Sclerosis, Denies Hx Muscular Dystrophy Skin Medical History: Reports Hx Cellulitis Psychiatric Medical History: Denies: Hx Dementia Traumatic Medical History: Reports: Hx Fractures - collar bone as child Infectious Medical History: Denies: Hx Hepatitis, Hx HIV Past Surgical History: Reports: Hx Cholecystectomy, Hx Mastectomy - LEFT, 13 nodes removed. Denies: Hx Appendectomy, Hx Bowel Surgery, Hx Section, Hx Colostomy, Hx Coronary Artery Bypass Graft, Hx Gastric Bypass Surgery, Hx Herniorrhaphy, Hx Hysterectomy, Hx Open Heart Surgery, Hx Pacemaker, Hx Tonsillectomy, Hx Tubal Ligation - Immunizations Immunizations up to date: No Hx Diphtheria, Pertussis, Tetanus Vaccination: Yes Review of Systems - Review of Systems Notes: Dictated Physical Exam - Vital signs Vitals: Resp Pulse Ox 14 100 05/26/18 10:25 05/26/18 10:25 - Notes Notes: Dictated Course - Re-evaluation Re-evalutation: 05/26/18 10:44 Vitals reviewed. Nursing notes reviewed. Patient's myugg-sa-uixd glucose is 100. She was started on D5 half-normal saline for her hypoglycemia and insulin overdose. Patient placed on the bus monitor. Because she has had continued nausea vomiting and diarrhea lab work will be obtained. 05/26/18 10:55 Patient's care was discussed with poison control who recommends glucose checks every hour until 5 hours post injection of NovoLog 05/26/18 12:45 Patient reevaluated. She has tolerated eating crackers and juice. She has not required any of the D5 infusion to maintain her blood glucose. After talking to poison control since she has not received D5 and is able to tolerate oral intake she is now stable for discharge home. She will continue to check her blood glucose at home as her symptoms dictate. She will follow with her primary care doctor for reevaluation of her nausea vomiting and diarrhea Laboratory 05/26/18 05/26/18 05/26/18 10:26 10:30 10:30 WBC 5.7 RBC 4.08 Hgb 14.3 Hct 41.6 MCV 102 H MCH 35.1 H MCHC 34.4 RDW 15.8 H Plt Count 273 Seg Neutrophils % 60.8 Lymphocytes % 18.0 Monocytes % 19.5 H Eosinophils % 1.4 Basophils % 0.3 Absolute Neutrophils 3.5 Absolute Lymphocytes 1.0 Absolute Monocytes 1.1 Absolute Eosinophils 0.1 Absolute Basophils 0.0 Sodium 140.8 Potassium 3.5 L Chloride 102 Carbon Dioxide 23 Anion Gap 16 BUN 19 Creatinine 1.08 Est GFR ( Amer) > 60 Est GFR (Non-Af Amer) 51 L Glucose 99 POC Glucose 100 Calcium 9.3 Lipase 16.7 L 05/26/18 05/26/18 11:10 11:42 WBC RBC Hgb Hct MCV MCH MCHC RDW Plt Count Seg Neutrophils % Lymphocytes % Monocytes % Eosinophils % Basophils % Absolute Neutrophils Absolute Lymphocytes Absolute Monocytes Absolute Eosinophils Absolute Basophils Sodium Potassium Chloride Carbon Dioxide Anion Gap BUN Creatinine Est GFR ( Amer) Est GFR (Non-Af Amer) Glucose POC Glucose 86 82 Calcium Lipase - Vital Signs Vital signs: Temp Pulse Resp BP Pulse Ox 18 136/76 H 98 05/26/18 12:01 05/26/18 12:01 05/26/18 12:01 - Laboratory Result Diagrams: 05/26/18 10:30 05/26/18 10:30 Laboratory results interpreted by me: 05/26/18 05/26/18 05/26/18 10:30 10:30 11:52 MCV 102 H MCH 35.1 H RDW 15.8 H Monocytes % 19.5 H Potassium 3.5 L Est GFR (Non-Af Amer) 51 L Lipase 16.7 L Urine Protein 100 H Discharge - Discharge Clinical Impression: Hypoglycemia Vomiting Qualifiers: Vomiting type: unspecified Vomiting Intractability: non-intractable Nausea presence: with nausea Qualified Code(s): R11.2 - Nausea with vomiting, unspecified Diarrhea Qualifiers: Diarrhea type: unspecified type Qualified Code(s): R19.7 - Diarrhea, unspecified Condition: Stable Disposition: HOME, SELF-CARE Instructions: Hypoglycemia ([facility]), Vomiting ([facility]) Additional Instructions: Please return to the emergency department if you have any worsening, or concern of your symptoms. Please return to the emergency department if you develop chest pain, difficulty breathing, severe abdominal pain, or ongoing vomiting. Please follow-up with your primary care physician in 2-3 days and any other recommended physicians. If prescribed, take all medications as directed. If you have any questions or concerns do not hesitate to return the emergency department for evaluation. [] Prescriptions: Promethazine HCl [Phenergan 25 mg Tablet] 1 tab PO Q6H PRN #15 tablet PRN Reason: Referrals: TARUN CAMACHO MD [[facility]] - Follow up in 3-5 days
[2018-05-26 11:07] LABS: ABSOLUTE EOSINOPHILS # (AUTO) 0.1 10^3/uL (0.0-0.6); ABSOLUTE MONOCYTES (AUTO) 1.1 10^3/uL (0.1-1.4); ABSOLUTE NEUT (AUTO) 3.5 10^3/uL (1.7-8.2); BASOPHILS % (AUTO) 0.3 % (0-2); EOSINOPHILS % (AUTO) 1.4 % (0-6); HEMATOCRIT 41.6 % (36.0-47.0); HEMOGLOBIN 14.3 g/dL (12.0-15.5); MEAN CORPUSCULAR HEMOGLOBIN 35.1 pg (27.0-33.4); MEAN CORPUSCULAR HGB CONC 34.4 g/dL (32.0-36.0); MEAN CORPUSCULAR VOLUME 102 fl (80-97); MONOCYTES % (AUTO) 19.5 % (3-13); PLATELET COUNT 273 10^3/uL (150-450); RED BLOOD COUNT 4.08 10^6/uL (3.72-5.28); RED CELL DISTRIBUTION WIDTH 15.8 % (11.5-14.0); SEGMENTED NEUTROPHILS % (AUTO) 60.8 % (42-78); TOTAL CELLS COUNTED % (AUTO) 100 %; WHITE BLOOD COUNT 5.7 10^3/uL (4.0-10.5)
[2018-05-26 11:12] LABS: ANION GAP 16 (5-19); BLOOD UREA NITROGEN 19 mg/dL (7-20); CALCIUM 9.3 mg/dL (8.4-10.2); CARBON DIOXIDE 23 mmol/L (22-30); CHLORIDE 102 mmol/L (98-107); GLUCOSE 99 mg/dL (75-110); LIPASE 16.7 U/L (23-300); POTASSIUM 3.5 mmol/L (3.6-5.0); SODIUM 140.8 mmol/L (137-145)
[2018-05-26 12:39] VITALS: BP 136/76
[2018-05-26 12:53] LABS: APPEARANCE,URINE SLIGHTLY-CLOUDY; BILIRUBIN,URINE NEGATIVE (NEGATIVE); COLOR,URINE YELLOW; GLUCOSE, URINE NEGATIVE (NEGATIVE); KETONES,URINE NEGATIVE (NEGATIVE); LEUKOCYTE ESTERASE,URINE NEGATIVE (NEGATIVE); NITRITE,URINE NEGATIVE (NEGATIVE); PROTEIN,URINE 100 mg/dL (NEGATIVE); URINE SPECIFIC GRAVITY 1.013; UROBILINOGEN,URINE NEGATIVE mg/dL (<2.0)
== END 2018-05-26 13:36 | disposition home or self-care (01) ==
LOC: ER 10:10
DX: T38.3X1A Poisoning by insulin and oral hypoglycemic [antidiabetic] drugs, accidental (unintentional), initial encounter (principal); E11.649 Type 2 diabetes mellitus with hypoglycemia without coma; Z79.4 Long term (current) use of insulin; R11.2 Nausea with vomiting, unspecified; R19.7 Diarrhea, unspecified; C50.919 Malignant neoplasm of unspecified site of unspecified female breast; Z79.899 Other long term (current) drug therapy; I10 Essential (primary) hypertension; Z91.040 Latex allergy status; Z87.440 Personal history of urinary (tract) infections
CPT/HCPCS: 99285; 36415; 82962; 83690; 85025; 80048; 81001; J2550

== ENCOUNTER 2018-10-22 12:23 | Emergency (ER) | payer MEDICARE, OTHER ==
[2018-10-22 12:39] VITALS: BP 169/85
== END 2018-10-22 13:01 | disposition left against medical advice (07) ==
LOC: ER 12:23
DX: Z53.21 Procedure and treatment not carried out due to patient leaving prior to being seen by health care provider (principal)

== ENCOUNTER → 2018-10-22 | Outpatient (CLI) | payer MEDICARE, OTHER ==
--- NOTE | 2018-10-22 13:24 | RADIOLOGY REPORT (SQ) ---
EXAM DESCRIPTION: NM GASTRIC EMPTYING STUDY COMPLETED DATE/TIME: 10/22/2018 12:42 pm REASON FOR STUDY: N/V (R11.2) R11.2 NAUSEA WITH VOMITING, UNSPECIFIED COMPARISON: None. RADIONUCLIDE AND DOSE: 2.2 millicuries Tc-99m Sulfur Colloid. A wide variety of solid foods have been used. The route of agent administration: Oral. TECHNIQUE: 1 minute serial static imaging performed at time of meal, 1 hour, 2 hours, 3 hours, and 4 hours as needed. Once stomach reaches 90% emptying, the test is complete. Image intensity values pl otted with respect to time with linear regression algorithm. LIMITATIONS: None. FINDINGS: Patient was observed for 4 hours. Immediate post meal serves as baseline. Gastric emptying at 60 minutes was 25.3%. Gastric emptying at 90 minutes was 38% Gastric emptying at 120 minutes was 50.6%. Gastric emptying at 240 minutes was 100%. Normal values: 60 minutes: 30-90% retained. If less than 30%, abnormally rapid emptying. If greater than 90%, del ayed gastric emptying. 120 minutes: <60% retained. If greater than 60%, delayed gastric emptying. 240 minutes: <10% retained. If greater than 10%, delayed gastric emptying. IMPRESSION: 1. Gastric emptying as above. 2. Normal gastric emptying at 240 minutes. TECHNICAL DOCUMENTATION: JOB ID: [id number] [employer]- All Rights Reserved rev-11/17 Reading location - IP/workstation name: [email or web address]
== END ==
LOC: RAD 07:31
PROVIDERS: ATTEND Internal Medicine Gastroenterology
DX: R11.2 Nausea with vomiting, unspecified (principal)
CPT/HCPCS: 78264; A9541